=== PATIENT | female | born 1960 | race Caucasian/White ===

== ENCOUNTER → 2016-10-31 | Outpatient (CLI) | payer MEDICARE, MEDICAID ==
[~2016-10-31] MED LIST: /MOXI40TA PO; BACL10TA2 PO; CALC600T7 PO; CLAR10CA3 PO; COLA50CA3 PO; DULC10SU9 PR; MIRA3350 PO; RANI1TAB6 PO; VALI10TA PO; XARE15TA PO; fleets PR
[2016-10-31 10:01] LABS: ALBUMIN 3.3 GM/DL (3.2-5.2); ALBUMIN/GLOBULIN RATIO 0.87 (1.00-1.93); ALKALINE PHOSPHATASE 104 U/L (45-117); ALT/SGPT 32 U/L (12-78); ANION GAP 6 MEQ/L (8-16); AST/SGOT 21 U/L (15-37); BILIRUBIN,TOTAL 0.3 MG/DL (0.2-1.0); BLOOD UREA NITROGEN 13 MG/DL (7-18); CALCIUM LEVEL 8.6 MG/DL (8.5-10.1); CARBON DIOXIDE LEVEL 30 MEQ/L (21-32); CHLORIDE LEVEL 107 MEQ/L (98-107); CREATININE FOR GFR 0.88 MG/DL (0.55-1.02); FREE T4 0.92 NG/DL (0.76-1.46); GLOMERULAR FILTRATION RATE > 60.0 (>51); GLUCOSE, FASTING 93 MG/DL (70-105); POTASSIUM SERUM 4.4 MEQ/L (3.5-5.1); SODIUM LEVEL 143 MEQ/L (136-145); TOTAL PROTEIN 7.1 GM/DL (6.4-8.2)
== END ==
LOC: M WUC 08:27
PROVIDERS: ATTEND Family Medicine
DX: E55.9 Vitamin D deficiency, unspecified (principal); R73.01 Impaired fasting glucose

== ENCOUNTER → 2016-11-14 | Outpatient (REF) | payer MEDICARE, MEDICAID | LOC: M SFHCPLAZ 16:37 | PROVIDERS: ATTEND Family Medicine | DX: R32 Unspecified urinary incontinence (principal) ==

== ENCOUNTER → 2017-02-03 | Outpatient (CLI) | payer MEDICARE, MEDICAID ==
--- NOTE | 2017-02-07 12:53 | REP ---
LIMITED MAMMOGRAM: Limited bilateral mammography performed in the CC projections. Patient would not allow appropriate positioning for MLO views. The CC views show predominantly fatty replacement with no definite mass or clustered microcalcifications. Suggest the patient return for MLO views for a complete study. IMPRESSION: ACR 0 incomplete. Only bilateral CC views could be completed. These show no definite mass or clustered microcalcifications. Suggest the patient return for bilateral MLO views for complete evaluation. BI-RADS/ACR category 0 mammogram, incomplete. Additional imaging and/or prior images are needed before a final assessment can be assigned. This mammogram was interpreted with the aid of an FDA-approved computer-aided detection system. The patient states that she/he has not had a clinical breast exam in over a year. The patient letter being requested is M0.
== END ==
LOC: M WHC 10:33
PROVIDERS: ATTEND Family Medicine
DX: R92.2 Inconclusive mammogram (principal)
CPT/HCPCS: G0202; G0463

== ENCOUNTER → 2017-03-07 | Outpatient (REF) | payer MEDICARE, MEDICAID | LOC: M LAB REF 17:02 | PROVIDERS: ATTEND Family Medicine | DX: I82.409 Acute embolism and thrombosis of unspecified deep veins of unspecified lower extremity (principal); R73.01 Impaired fasting glucose ==

== ENCOUNTER → 2017-03-07 | Outpatient (CLI) | payer MEDICARE, MEDICAID ==
[2017-03-07 13:34] LABS: BASO % 0.4 % (0.0-1.0); EOS # 0.2 K/mm3 (0.0-0.50); EOS % 3.1 % (0.0-3.0); LARGE UNSTAINED CELL # 0.2 K/mm3 (0.0-0.4); LARGE UNSTAINED CELL % 2.1 % (0.0-4.0); LYMPH # 2.8 K/mm3 (1.5-4.5); LYMPH % 32.4 % (24.0-44.0); MEAN CORPUSCULAR HEMOGLOBIN 28.8 pg (27.0-33.0); MEAN CORPUSCULAR HGB CONC 31.2 g/dl (32.0-36.5); MEAN CORPUSCULAR VOLUME 92.2 fl (80.0-96.0); MONO # 0.5 K/mm3 (0.0-0.8); MONO % 5.8 % (0.0-5.0); NEUTROPHILS # 4.5 K/mm3 (1.8-7.7); NEUTROPHILS % 56.1 % (36.0-66.0); PLATELET COUNT, AUTOMATED 238 k/mm3 (150-450); RED CELL DISTRIBUTION WIDTH 13.8 % (11.5-14.5)
[2017-03-07 13:44] LABS: PERCENT SATURATION 25.2 % (13.2-37.4)
== END ==
LOC: M WUC 08:19
PROVIDERS: ATTEND Family Medicine
DX: I82.409 Acute embolism and thrombosis of unspecified deep veins of unspecified lower extremity (principal); R73.01 Impaired fasting glucose; I26.99 Other pulmonary embolism without acute cor pulmonale; K76.0 Fatty (change of) liver, not elsewhere classified; R94.5 Abnormal results of liver function studies

== ENCOUNTER → 2017-03-08 | Outpatient (CLI) | payer MEDICARE, MEDICAID ==
--- NOTE | 2017-03-08 14:47 | REP ---
PELVIC SONOGRAPHY: HISTORY: Postmenopausal bleeding. Findings: Transabdominal scanning is performed. Uterine dimensions are normal and 6.9 x 2.9 x 4.1 cm. Endometrial echo 0.4 cm thick. There is a 2.0 cm fibroid in the right anterior uterus. A subcentimeter fibroid is seen in the right posterior uterus. No free fluid is seen. Bladder souza are smooth. The right ovary contains a 1.6 cm follicle cyst. Right ovary dimensions are 2.6 x 2.0 x 1.7 cm. There is a 1.5 cm simple cyst in the left ovary. Left ovarian dimensions measure 2.6 x 1.9 x 2.0 cm. IMPRESSION: Two small uterine fibroids. No other significant abnormality.
== END ==
LOC: M WHC 11:03
PROVIDERS: ATTEND Family Medicine
DX: N95.0 Postmenopausal bleeding (principal); N83.202 Unspecified ovarian cyst, left side; D25.9 Leiomyoma of uterus, unspecified

== ENCOUNTER → 2017-06-06 | Outpatient (CLI) | payer MEDICARE, MEDICAID ==
[2017-06-06 09:18] LABS: BASO % 0.2 % (0.0-1.0); EOS # 0.2 10^3/uL (0.0-0.50); EOS % 2.6 % (0.0-3.0); IMMATURE GRANULOCYTE % 0.2 % (0-0); LYMPH # 2.3 10^3/uL (1.5-4.5); LYMPH % 27.6 % (24.0-44.0); MEAN CORPUSCULAR HGB CONC 31.5 g/dl (32.0-36.5); MEAN CORPUSCULAR VOLUME 89.1 fl (80.0-96.0); MONO # 0.7 10^3/uL (0.0-0.8); NEUTROPHILS % 61.4 % (36.0-66.0); PLATELET COUNT, AUTOMATED 253 10^3/uL (150-450); RED CELL DISTRIBUTION WIDTH 14.6 % (11.5-14.5); WHITE BLOOD COUNT 8.2 10^3/uL (4.0-10.0)
[2017-06-06 09:45] LABS: ALBUMIN 3.4 GM/DL (3.2-5.2); ALBUMIN/GLOBULIN RATIO 0.85 (1.00-1.93); ALKALINE PHOSPHATASE 90 U/L (45-117); ALT/SGPT 21 U/L (12-78); ANION GAP 5 MEQ/L (8-16); AST/SGOT 15 U/L (15-37); BILIRUBIN,TOTAL 0.3 MG/DL (0.2-1.0); BLOOD UREA NITROGEN 9 MG/DL (7-18); CALCIUM LEVEL 9.7 MG/DL (8.5-10.1); CARBON DIOXIDE LEVEL 32 MEQ/L (21-32); CHLORIDE LEVEL 104 MEQ/L (98-107); CREATININE FOR GFR 0.84 MG/DL (0.55-1.02); FERRITIN 36 NG/ML (8-252); GLOMERULAR FILTRATION RATE > 60.0 (>51); GLUCOSE, FASTING 98 MG/DL (70-105); POTASSIUM SERUM 4.7 MEQ/L (3.5-5.1); SODIUM LEVEL 141 MEQ/L (136-145); TOTAL PROTEIN 7.4 GM/DL (6.4-8.2)
== END ==
LOC: M WUC 08:22
PROVIDERS: ATTEND Family Medicine
DX: I82.409 Acute embolism and thrombosis of unspecified deep veins of unspecified lower extremity (principal); E55.9 Vitamin D deficiency, unspecified; R73.01 Impaired fasting glucose

== ENCOUNTER → 2017-09-12 | Outpatient (CLI) | payer MEDICARE, MEDICAID ==
[2017-09-12 16:34] LABS: C REACTIVE PROTEIN QUANTITATIV 0.57 MG/DL (0.00-0.30); CHOLESTEROL LEVEL 202 MG/DL (<200); CPK CREATINE PHOSPHOKINASE 68 U/L (26-192); HDL CHOLESTEROL 68 MG/DL (>40); LDL CHOLESTEROL 78.8 MG/DL (<100); NON-HDL-C 134 MG/DL; TRIGLYCERIDES LEVEL 276 MG/DL (<150)
[2017-09-12 17:08] LABS: ESTIMATED AVERAGE GLUCOSE 126 MG/DL (60-110)
[2017-09-12 20:11] LABS: APPEARANCE, URINE CLEAR (CLEAR); BACTERIA, URINE AUTO NEGATIVE (NEGATIVE); BILIRUBIN, URINE AUTO NEGATIVE (NEGATIVE); BLOOD, URINE BLOOD NEGATIVE (NEGATIVE); COLOR, URINE YELLOW (YELLOW); GLUCOSE, URINE (UA) AUTO NEGATIVE (NEGATIVE); KETONE, URINE AUTO NEGATIVE (NEGATIVE); LEUKOCYTE ESTERASE, URINE AUTO 1+ (NEGATIVE); NITRITE, URINE AUTO NEGATIVE (NEGATIVE); PROTEIN, URINE AUTO NEGATIVE (NEGATIVE); RBC, URINE AUTO 2 /HPF (0-3); SPECIFIC GRAVITY URINE AUTO 1.019 (1.002-1.035); SQUAMOUS EPITHELIAL CELL UR AU 0 /HPF (0-6); UROBILINOGEN, URINE AUTO 0.2 mg/dL (0.0-2.0); WBC, URINE AUTO 5 /HPF (0-3)
[2017-09-12 21:13] LABS: CREATININE, URINE 77.4 MG/DL; MALB URINE SIEMENS 5.6 MG/L; MAU/CREAT RATIO 7.2 MCG/MG (0.0-30.0)
== END ==
LOC: M WUC 09:04
DX: R73.01 Impaired fasting glucose (principal); E78.00 Pure hypercholesterolemia, unspecified
CPT/HCPCS: 82550

== ENCOUNTER → 2017-11-05 | Outpatient (CLI) | payer MEDICARE, MEDICAID | LOC: M WUC 11:34 | DX: M19.012 Primary osteoarthritis, left shoulder (principal); M25.512 Pain in left shoulder | CPT/HCPCS: 73000 ==

== ENCOUNTER → 2018-01-15 | Outpatient (CLI) | payer MEDICARE, MEDICAID ==
[2018-01-15 09:36] LABS: BASO % 0.2 % (0.0-1.0); EOS # 0.3 10^3/uL (0.0-0.50); EOS % 2.4 % (0.0-3.0); HEMATOCRIT 41.3 % (36.0-47.0); IMMATURE GRANULOCYTE % 0.3 % (0-3.0); LYMPH # 2.3 10^3/uL (1.5-4.5); LYMPH % 21.7 % (24.0-44.0); MEAN CORPUSCULAR HEMOGLOBIN 28.1 pg (27.0-33.0); MEAN CORPUSCULAR HGB CONC 31.5 g/dl (32.0-36.5); MEAN CORPUSCULAR VOLUME 89.2 fl (80.0-96.0); MONO % 9.1 % (0.0-5.0); NEUTROPHILS % 66.3 % (36.0-66.0); PLATELET COUNT, AUTOMATED 232 10^3/uL (150-450); RED BLOOD COUNT 4.63 10^6/uL (4.00-5.40); RED CELL DISTRIBUTION WIDTH 15.5 % (11.5-14.5); WHITE BLOOD COUNT 10.5 10^3/uL (4.0-10.0)
[2018-01-15 10:03] LABS: ALBUMIN 3.2 GM/DL (3.2-5.2); ALBUMIN/GLOBULIN RATIO 0.89 (1.00-1.93); ALKALINE PHOSPHATASE 118 U/L (45-117); ALT/SGPT 37 U/L (12-78); ANION GAP 5 MEQ/L (8-16); AST/SGOT 25 U/L (7-37); BILIRUBIN,TOTAL 0.3 MG/DL (0.2-1.0); BLOOD UREA NITROGEN 10 MG/DL (7-18); CALCIUM LEVEL 8.5 MG/DL (8.5-10.1); CARBON DIOXIDE LEVEL 31 MEQ/L (21-32); CHLORIDE LEVEL 109 MEQ/L (98-107); CHOLESTEROL LEVEL 102 MG/DL (<200); CHOLESTEROL RISK RATIO 1.545 (<5); CPK CREATINE PHOSPHOKINASE 57 U/L (26-192); CREATININE FOR GFR 0.72 MG/DL (0.55-1.30); FERRITIN 38 NG/ML (8-252); GLOMERULAR FILTRATION RATE > 60.0 (>51); GLUCOSE, FASTING 88 MG/DL (70-100); HDL CHOLESTEROL 66 MG/DL (>40); LDL CHOLESTEROL 12.8 MG/DL (<100); NON-HDL-C 36 MG/DL; POTASSIUM SERUM 4.5 MEQ/L (3.5-5.1); SODIUM LEVEL 145 MEQ/L (136-145); TOTAL PROTEIN 6.8 GM/DL (6.4-8.2); TRIGLYCERIDES LEVEL 116 MG/DL (<150)
[2018-01-15 11:45] LABS: ESTIMATED AVERAGE GLUCOSE 114 MG/DL (60-110); HEMOGLOBIN A1c 5.6 %
[2018-01-16 14:11] LABS: INSULIN LEVEL 15.7 uIU/mL (2.6-24.9)
== END ==
LOC: M WUC 08:29
DX: N95.0 Postmenopausal bleeding (principal); R73.01 Impaired fasting glucose; Z79.899 Other long term (current) drug therapy
CPT/HCPCS: 82550

== ENCOUNTER → 2018-03-26 | Outpatient (CLI) | payer MEDICARE, MEDICAID | LOC: M WHC 13:13 | DX: Z12.31 Encounter for screening mammogram for malignant neoplasm of breast (principal) | CPT/HCPCS: 77067 ==

== ENCOUNTER → 2018-06-10 | Outpatient (CLI) | payer MEDICARE, MEDICAID ==
[2018-06-10 18:18] LABS: ALBUMIN 3.2 GM/DL (3.2-5.2); ALBUMIN/GLOBULIN RATIO 0.86 (1.00-1.93); ALKALINE PHOSPHATASE 118 U/L (45-117); ALT/SGPT 41 U/L (12-78); ANION GAP 5 MEQ/L (8-16); AST/SGOT 31 U/L (7-37); BILIRUBIN,TOTAL 0.3 MG/DL (0.2-1.0); BLOOD UREA NITROGEN 11 MG/DL (7-18); CALCIUM LEVEL 8.4 MG/DL (8.5-10.1); CARBON DIOXIDE LEVEL 31 MEQ/L (21-32); CHLORIDE LEVEL 106 MEQ/L (98-107); CREATININE FOR GFR 0.78 MG/DL (0.55-1.30); GLOMERULAR FILTRATION RATE > 60.0 (>51); GLUCOSE, FASTING 87 MG/DL (70-100); POTASSIUM SERUM 4.6 MEQ/L (3.5-5.1); SODIUM LEVEL 142 MEQ/L (136-145); TOTAL PROTEIN 6.9 GM/DL (6.4-8.2)
[2018-06-10 18:38] LABS: ESTIMATED AVERAGE GLUCOSE 123 MG/DL (60-110); HEMOGLOBIN A1c 5.9 %
[2018-06-10 18:45] LABS: BASO % 0.2 % (0.0-1.0); EOS # 0.2 10^3/uL (0.0-0.50); EOS % 2.1 % (0.0-3.0); HEMATOCRIT 45.2 % (36.0-47.0); HEMOGLOBIN 13.5 g/dl (12.0-15.5); IMMATURE GRANULOCYTE % 0.3 % (0-3.0); LYMPH % 34.2 % (24.0-44.0); MEAN CORPUSCULAR HEMOGLOBIN 27.1 pg (27.0-33.0); MEAN CORPUSCULAR HGB CONC 29.9 g/dl (32.0-36.5); MEAN CORPUSCULAR VOLUME 90.6 fl (80.0-96.0); MONO # 0.6 10^3/uL (0.0-0.8); MONO % 7.2 % (0.0-5.0); NEUTROPHILS # 4.9 10^3/uL (1.8-7.7); PLATELET COUNT, AUTOMATED 283 10^3/uL (150-450); RED BLOOD COUNT 4.99 10^6/uL (4.00-5.40); RED CELL DISTRIBUTION WIDTH 15.4 % (11.5-14.5); RETIC HEMOGLOBIN EQUIVALENT 33.2 pg (24-36); RETICULOCYTE # 70.4 10^9/L (17-77); RETICULOCYTE % 1.4 % (0.5-1.5); WHITE BLOOD COUNT 8.7 10^3/uL (4.0-10.0)
[2018-06-11 10:07] LABS: TOTAL 25(OH) VITAMIN D 80.9 NG/ML (30.0-100.0)
[2018-06-11 10:08] LABS: PTH INTACT 50.9 PG/ML (18.5-88.0)
== END ==
LOC: M WUC 08:52
DX: E55.9 Vitamin D deficiency, unspecified (principal); I82.409 Acute embolism and thrombosis of unspecified deep veins of unspecified lower extremity; R73.01 Impaired fasting glucose; Z79.899 Other long term (current) drug therapy
CPT/HCPCS: 83525

== ENCOUNTER → 2018-06-25 | Outpatient (CLI) | payer MEDICARE, MEDICAID | LOC: M WHC 09:42 | DX: E55.9 Vitamin D deficiency, unspecified (principal); M85.851 Other specified disorders of bone density and structure, right thigh | CPT/HCPCS: 77080 ==

== ENCOUNTER → 2018-11-05 | Outpatient (REF) | payer MEDICARE, MEDICAID ==
[2018-11-05 15:58] LABS: BASO % 0.3 % (0.0-1.0); EOS # 0.3 10^3/uL (0.0-0.50); EOS % 2.7 % (0.0-3.0); HEMATOCRIT 41.6 % (36.0-47.0); HEMOGLOBIN 12.9 g/dl (12.0-15.5); LYMPH # 2.9 10^3/uL (1.5-4.5); LYMPH % 28.7 % (24.0-44.0); MEAN CORPUSCULAR HEMOGLOBIN 27.3 pg (27.0-33.0); MEAN CORPUSCULAR VOLUME 87.9 fl (80.0-96.0); MONO # 1.3 10^3/uL (0.0-0.8); MONO % 12.8 % (0.0-5.0); NEUTROPHILS # 5.6 10^3/uL (1.8-7.7); NEUTROPHILS % 55.2 % (36.0-66.0); PLATELET COUNT, AUTOMATED 281 10^3/uL (150-450); RED BLOOD COUNT 4.73 10^6/uL (4.00-5.40); WHITE BLOOD COUNT 10.1 10^3/uL (4.0-10.0)
[2018-11-05 16:10] LABS: ALBUMIN 3.1 GM/DL (3.2-5.2); ALT/SGPT 35 U/L (12-78); BILIRUBIN,TOTAL 0.2 MG/DL (0.2-1.0); BLOOD UREA NITROGEN 13 MG/DL (7-18); C REACTIVE PROTEIN QUANTITATIV 0.86 MG/DL (0.00-0.30); CALCIUM LEVEL 8.8 MG/DL (8.5-10.1); CARBON DIOXIDE LEVEL 31 MEQ/L (21-32); CHLORIDE LEVEL 108 MEQ/L (98-107); CHOLESTEROL LEVEL 119 MG/DL (<200); CHOLESTEROL RISK RATIO 2.016 (<5); CPK CREATINE PHOSPHOKINASE 53 U/L (26-192); FREE T4 0.86 NG/DL (0.76-1.46); GAMMA GLUTAMYLTRANSPEPTIDASE 11 U/L (5-55); GLOMERULAR FILTRATION RATE > 60.0 (>51); GLUCOSE, FASTING 96 MG/DL (70-100); HDL CHOLESTEROL 59 MG/DL (>40); LDL CHOLESTEROL -4 MG/DL (<100); NON-HDL-C 60 MG/DL; POTASSIUM SERUM 4.2 MEQ/L (3.5-5.1); SODIUM LEVEL 145 MEQ/L (136-145); THYROID STIMULATING HORMONE 0.608 uIU/ML (0.358-3.740); TOTAL PROTEIN 6.7 GM/DL (6.4-8.2); TRIGLYCERIDES LEVEL 318 MG/DL (<150)
== END ==
LOC: M SFHCPLAZ 14:04
PROVIDERS: ATTEND Family Medicine
DX: R73.01 Impaired fasting glucose (principal); M85.80 Other specified disorders of bone density and structure, unspecified site; D72.829 Elevated white blood cell count, unspecified; E78.2 Mixed hyperlipidemia; F32.9 Major depressive disorder, single episode, unspecified; N95.0 Postmenopausal bleeding; G80.1 Spastic diplegic cerebral palsy; I82.409 Acute embolism and thrombosis of unspecified deep veins of unspecified lower extremity; R22.2 Localized swelling, mass and lump, trunk; K59.00 Constipation, unspecified; E55.9 Vitamin D deficiency, unspecified; Z12.11 Encounter for screening for malignant neoplasm of colon; Z86.010 Personal history of colon polyps
CPT/HCPCS: 36415; 80053; 80061; 82550; 82977; 83525; 84439; 84443; 85025; 85046; 86140; G0463

== ENCOUNTER → 2019-01-01 | Outpatient (REF) | payer MEDICARE, MEDICAID ==
[~2019-01-01] MED LIST changes: -/MOXI40TA PO; +AVEL1TAB2 PO
[2019-01-01 21:25] LABS: APPEARANCE, URINE CLEAR (CLEAR); BACTERIA, URINE AUTO NEGATIVE (NEGATIVE); BILIRUBIN, URINE AUTO NEGATIVE (NEGATIVE); BLOOD, URINE BLOOD NEGATIVE (NEGATIVE); COLOR, URINE YELLOW (YELLOW); GLUCOSE, URINE (UA) AUTO NEGATIVE (NEGATIVE); KETONE, URINE AUTO NEGATIVE (NEGATIVE); LEUKOCYTE ESTERASE, URINE AUTO NEGATIVE (NEGATIVE); MUCUS, URINE SMALL (NEGATIVE); NITRITE, URINE AUTO NEGATIVE (NEGATIVE); PROTEIN, URINE AUTO NEGATIVE (NEGATIVE); RBC, URINE AUTO 0 /HPF (0-3); SPECIFIC GRAVITY URINE AUTO 1.013 (1.002-1.035); SQUAMOUS EPITHELIAL CELL UR AU 0 /HPF (0-6); UROBILINOGEN, URINE AUTO 0.2 mg/dL (0.0-2.0); WBC, URINE AUTO 0 /HPF (0-3)
== END ==
LOC: M SFHCPLAZ 19:25
PROVIDERS: ATTEND Family Medicine
DX: N39.0 Urinary tract infection, site not specified (principal)

== ENCOUNTER 2019-02-07 07:18 | Day surgery (SDC) | payer MEDICARE, MEDICAID ==
[~2019-02-07] VITALS: Ht 152.4 cm; Wt 54.4 kg
[~2019-02-07 07:18] MED LIST changes: +CALCCHW4 PO; +CLAR10TA7 PO; +COLA100C5 PO; +DRIS50003 PO; +LIPI20TA PO; +METF500T13 PO; +NS 1,000 ML IV ONE; +PAXI25TA13 PO; +XARE20TA PO; +ZANTTAB PO
[2019-02-07] MEDS ORDERED: LIDOCAINE 2% INJ 100 MG/5 ML SDV (FOR ANES.) As Ordered ONE (07:20)
[2019-02-07] MEDS ORDERED: PROPOFOL 200 MG/20 ML VIAL As Ordered ONE ×2 (07:20→09:08)
--- NOTE | 2019-02-07 09:21 | ROOR ---
Patient Name: Terrie Connell Procedure Date: 02/07/2019 8:47 AM Date of : 1960 Age: 58 Room: [facility] Gender: Female Note Status: Finalized Procedure: Colonoscopy Indications: High risk colon cancer surveillance: Personal history of colonic polyps Providers: Levon PAULINO MD Referring MD: Yovani Solorzano MD Requesting Provider: Medicines: Monitored Anesthesia Care Complications: No immediate complications. Procedure: Pre-Anesthesia Assessment: - The heart rate, respiratory rate, oxygen saturations, blood pressure, adequacy of pulmonary ventilation, and response to care were monitored throughout the procedure. The Colonoscope was introduced through the anus and advanced to the cecum, identified by appendiceal orifice and ileocecal valve. The colonoscopy was performed without difficulty. The patient tolerated the procedure well. The quality of the bowel preparation was adequate. Findings: The perianal and digital rectal examinations were normal. Three sessile polyps were found in the splenic flexure and hepatic flexure. The polyps were 3 to 5 mm in size. These polyps were removed with a cold snare. Resection and retrieval were complete. Internal hemorrhoids were found during retroflexion. The hemorrhoids were medium-sized. Retroflexion in the right colon was performed. The exam was otherwise without abnormality on direct and retroflexion views. Impression: - Three 3 to 5 mm polyps at the splenic flexure and at the hepatic flexure, removed with a cold snare. Resected and retrieved. - Internal hemorrhoids. - The examination was otherwise normal on direct and retroflexion views. Recommendation: - Telephone endoscopist for pathology results in 2 weeks. - If the pathology report reveals adenomatous tissue, then repeat the colonoscopy for surveillance in 3 years. - If the pathology report indicates hyperplastic polyp, then repeat colonoscopy for surveillance in 5 years. Levon Paulino MD Levon PAULINO MD 02/07/2019 9:21:03 AM Electronically signed by Levon PAULINO MD Number of Addenda: 0 Note Initiated On: 02/07/2019 8:47 AM Estimated Blood Loss: Estimated blood loss: none.
[2019-02-07 09:48] VITALS: BP 117/84
== END 2019-02-07 09:29 | disposition home or self-care (01) ==
LOC: M OPP 07:18
PROVIDERS: ATTEND Internal Medicine Gastroenterology
DX: Z12.11 Encounter for screening for malignant neoplasm of colon (principal); Z86.010 Personal history of colon polyps; D12.3 Benign neoplasm of transverse colon; K64.8 Other hemorrhoids; Z79.84 Long term (current) use of oral hypoglycemic drugs; Z79.899 Other long term (current) drug therapy; Z88.5 Allergy status to narcotic agent; Z88.8 Allergy status to other drugs, medicaments and biological substances

== ENCOUNTER → 2019-03-28 | Outpatient (CLI) | payer MEDICARE, MEDICAID ==
[~2019-03-28] MED LIST changes: -NS 1,000 ML IV ONE; +ZANT150T40 PO; -ZANTTAB PO
--- NOTE | 2019-03-28 10:14 | REPMRS ---
Patient History The patient states she had a clinical breast exam in 06/14. Digital Woman Screen Mammo: March 28, 2019 - Exam #: [id number] Bilateral CC and MLO view(s) were taken. Technologist: Karley Gu, Technologist Prior study comparison: March 26, 2018, bilateral digital woman screen mammo performed at [facility]. February 03, 2017, digital woman screen mammo performed at [facility]. December 02, 2015, digital woman screen mammo performed at [facility]. FINDINGS: There are scattered fibroglandular densities. There has been no change in the appearance of the mammogram from the prior studies. There is a mild amount of scattered fibroglandular density which is fairly symmetric. There is no interval development of dominant mass, architectural distortion, or grouped microcalcification suggestive of malignancy. 3-D tomosynthesis shows no additional findings. Assessment: BI-RADS/ACR category 1 mammogram. Negative Mammogram. Recommendation Routine screening mammogram of both breasts in 1 year (for women over age 40). This patient's Lifetime Breast Cancer Risk is estimated at 10.3 %. This mammogram was interpreted with the aid of an FDA-approved computer-aided dectection system. Electronically Signed By: Aurelio Sánchez MD 03/28/19 [id number]
== END ==
LOC: M WHC 09:31
PROVIDERS: ATTEND Family Medicine
DX: Z12.39 Encounter for other screening for malignant neoplasm of breast (principal)

== ENCOUNTER → 2019-03-30 | Outpatient (CLI) | payer MEDICARE, MEDICAID ==
[2019-03-30 17:36] LABS: ALBUMIN 3.2 GM/DL (3.2-5.2); ALT/SGPT 64 U/L (12-78); BILIRUBIN,TOTAL 0.4 MG/DL (0.2-1.0); BLOOD UREA NITROGEN 11 MG/DL (7-18); CALCIUM LEVEL 8.6 MG/DL (8.5-10.1); CARBON DIOXIDE LEVEL 32 MEQ/L (21-32); CHLORIDE LEVEL 107 MEQ/L (98-107); CHOLESTEROL LEVEL 104 MG/DL (<200); CHOLESTEROL RISK RATIO 1.529 (<5); CREATININE FOR GFR 0.87 MG/DL (0.55-1.30); GLOMERULAR FILTRATION RATE > 60.0 (>51); GLUCOSE, FASTING 95 MG/DL (70-100); HDL CHOLESTEROL 68 MG/DL (>40); LDL CHOLESTEROL 16 MG/DL (<100); NON-HDL-C 36 MG/DL; POTASSIUM SERUM 4.6 MEQ/L (3.5-5.1); SODIUM LEVEL 142 MEQ/L (136-145); TOTAL PROTEIN 6.7 GM/DL (6.4-8.2); TRIGLYCERIDES LEVEL 101 MG/DL (<150)
== END ==
LOC: M WUC 09:04
PROVIDERS: ATTEND Family Medicine
DX: E78.2 Mixed hyperlipidemia (principal)

== ENCOUNTER → 2019-07-04 | Outpatient (REF) | payer MEDICARE, MEDICAID ==
[2019-07-09 14:27] LABS: HPV HYBRID CAPTURE II Negative (Negative)
== END ==
LOC: M SFHCWAGY 10:47
PROVIDERS: ATTEND Nurse Practitioner Women's Health
DX: Z12.4 Encounter for screening for malignant neoplasm of cervix (principal); R87.620 Atypical squamous cells of undetermined significance on cytologic smear of vagina (ASC-US); N95.2 Postmenopausal atrophic vaginitis; L85.9 Epidermal thickening, unspecified
CPT/HCPCS: 87624; G0123; G0463

== ENCOUNTER 2019-10-05 15:52 | Inpatient (IN) | payer MEDICARE, MEDICAID ==
[~2019-10-05] VITALS: Ht 147.3 cm; Wt 52.5 kg
[2019-10-05] MEDS ORDERED: NS 1,000 ML IV ONE (17:15)
[2019-10-05] MEDS ORDERED: ONDANSETRON 4MG/2ML VIAL (J2405) IV ONE (17:15)
[2019-10-05 18:00] LABS: BASO % 0.3 % (0.0-1.0); HEMATOCRIT 45.2 % (36.0-47.0); HEMOGLOBIN 14.3 g/dl (12.0-15.5); LYMPH % 13.4 % (24.0-44.0); MEAN CORPUSCULAR HEMOGLOBIN 27.6 pg (27.0-33.0); MEAN CORPUSCULAR HGB CONC 31.6 g/dl (32.0-36.5); MEAN CORPUSCULAR VOLUME 87.1 fl (80.0-96.0); MONO # 0.3 10^3/uL (0.0-0.8); MONO % 1.9 % (0.0-5.0); NEUTROPHILS # 12.5 10^3/uL (1.5-8.5); PLATELET COUNT, AUTOMATED 307 10^3/uL (150-450); RED BLOOD COUNT 5.19 10^6/uL (4.00-5.40); WHITE BLOOD COUNT 14.9 10^3/uL (4.0-10.0)
[2019-10-05 18:27] LABS: ALBUMIN 3.7 GM/DL (3.2-5.2); ALT/SGPT 37 U/L (12-78); BILIRUBIN,DIRECT 0.1 MG/DL (0.0-0.2); BILIRUBIN,TOTAL 0.3 MG/DL (0.2-1.0); CPK CREATINE PHOSPHOKINASE 76 U/L (26-192); LIPASE 139 U/L (73-393); MB/CK RELATIVE INDEX 1.32 (< OR =4); TOTAL PROTEIN 7.7 GM/DL (6.4-8.2); TROPONIN I < 0.02 NG/ML (< 0.10)
[2019-10-05] MEDS ORDERED: NS 780 ML in IV 1 EA IV ONE (18:30)
--- NOTE | 2019-10-05 18:50 | REP ---
Clinical: Cough. Comparison: None. Findings: Large density in the left breast obscures the left lower lung zone. The bilateral visualized lung clement are otherwise well aerated and clear. The cardiac silhouette and mediastinum appear normal. The skeletal structures are intact. Impression: Visualized lung clement are clear. Left lower lung zone is obscured by a large density presumed to be within the left breast. Electronically Signed by Branden Horton MD 10/05/2019 06:41 P
[2019-10-05 18:54] LABS: INFLUENZA A AMPLIFICATION NEGATIVE (NEGATIVE); INFLUENZA B AMPLIFICATION NEGATIVE (NEGATIVE)
[2019-10-05] MEDS ORDERED: ISOVUE-370 76% 100ML VIAL (Q9967) As Ordered ONE (19:12)
--- NOTE | 2019-10-05 19:26 | ECGEPIP ---
[facility] - ED Test Date: 2019-10-05 Pat Name: PIERO HANCOCK Department: Room: - Gender: Female [employer] Le[employer]: : 1960 Requested By: JENNIFER HERNANDEZ PA-C Order Number: [id number] Reading MD: Oscar Griffiths Measurements Intervals [place] Rate: 81 P: 70 AL: 173 QRS: 76 QRSD: 90 T: 75 QT: 409 QTc: 475 Interpretive Statements SINUS RHYTHM NONSPECIFIC ST T WAVE CHANGES NO PRIOR ECG FOR COMPARISON Electronically Signed on 10-05-2019 19:26:16 EST by Oscar Griffiths
--- NOTE | 2019-10-05 19:59 | REPVR ---
PROCEDURE INFORMATION: Exam: CT Abdomen And Pelvis With Contrast Exam date and time: 10/05/2019 7:22 PM Age: 59 years old Clinical indication: Vomiting; Additional info: Vomiting/sweats TECHNIQUE: Imaging protocol: Computed tomography of the abdomen and pelvis with intravenous contrast. Radiation optimization: All CT scans at this facility use at least one of these dose optimization techniques: automated exposure control; mA and/or kV adjustment per patient size (includes targeted exams where dose is matched to clinical indication); or iterative reconstruction. Contrast material: ISOVUE 370; Contrast volume: 100 ml; Contrast route: IV; COMPARISON: CT ABD PELVIS W/O CONTRAST 10/04/2013 5:49 PM FINDINGS: Liver: There is a diffuse decrease in hepatic parenchymal density, consistent with steatosis. Gallbladder and bile ducts: Normal. No calcified stones. No ductal dilation. Pancreas: Normal. No ductal dilation. Spleen: Normal. No splenomegaly. Adrenals: Normal. No mass. Kidneys and ureters: Normal. No hydronephrosis. Stomach and bowel: Impacted feces in the rectosigmoid. Mild thickening of the wall of the rectum may indicate stercoral colitis. There is a diffusely boggy appearance of the ascending, transverse and proximal left colon with mural stratification, wall thickening, and an ahasutral countour. There are mild pericolonic inflammatory changes. Findings consistent with acute colitis. No abscess demonstrated. Appendix: No evidence of appendicitis. Intraperitoneal space: Unremarkable. No free air. No significant fluid collection. Vasculature: The aorta demonstrates mild atherosclerotic calcification. Lymph nodes: Unremarkable. No enlarged lymph nodes. Bladder: Unremarkable as visualized. Reproductive: Unremarkable as visualized. Bones/joints: Unremarkable. No acute fracture. Soft tissues: Unremarkable. IMPRESSION: 1. Impacted feces in the rectosigmoid. Mild thickening of the wall of the rectum may indicate stercoral colitis. 2. There is a diffuse decrease in hepatic parenchymal density, consistent with steatosis. 3. There is a diffusely boggy appearance of the ascending, transverse and proximal left colon with mural stratification, wall thickening, and an ahasutral countour. There are mild pericolonic inflammatory changes. Findings consistent with acute colitis. No abscess demonstrated. Electronically signed by: Ilir Santos On 10/05/2019 19:59:03 PM
[2019-10-05] MEDS ORDERED: PIPERACILLIN/TAZOBACTAM SOD 4.5 GM in D5W MINI-BAG PLUS 50 ML IV ONE (20:30)
--- NOTE | 2019-10-05 20:38 | HPEPDOC ---
[facility] Medical History & Physical Date of Admission Oct 05, 2019 Date of Service: Oct 05, 2019 Primary Care Physician: Yovani Solorzano M.D. Attending Physician: Lucius Coyle MD History and Physical TIME OF SERVICE: 8:47 PM CHIEF COMPLAINT: Sent from [facility] HISTORY OF PRESENT ILLNESS: The patient is not verbal and unable to contribute to the history. This is a 59-year-old female who was sent from her [facility] for evaluation of high blood pressure. Apparently earlier on in the day. She was vomiting and sweating. REVIEW OF SYSTEMS: Unobtainable PAST MEDICAL/ SURGICAL HISTORY: Cerebral palsy Hepatic steatosis Per DM Right lower extremity DVT on Xarelto Chronic constipation History of subclinical hypothyroidism post thyroiditis Menorrhagia Seizure disorder Eczema SOCIAL HISTORY: She lives in a [facility] FAMILY HISTORY: Unobtainable ALLERGIES: Please see below. HOME MEDICATIONS: Please see below. PHYSICAL EXAMINATION: VITAL SIGNS: Please see below. GEN: well-nourished / smiling INTEGUMENT: not flushed/ not jaundice HEENT: NCAT / lips acyanotic /mucus membranes moist and pink CVS: RRR/NMRG LUNGS: no coughing / lungs are clear to auscultation ABDOMEN: soft not grimacing with palpation MSK/EXTREMITIES: contractures of both upper extremities PSYCH: alert LABORATORY DATA: See below. IMAGING: Chest x-ray "Impression: Visualized lung clement are clear. Left lower lung zone is obscured by a large density presumed to be within the left breast." CT abdomen and pelvis " IMPRESSION: 1. Impacted feces in the rectosigmoid. Mild thickening of the wall of the rectum may indicate stercoral colitis. 2. There is a diffuse decrease in hepatic parenchymal density, consistent with steatosis. 3. There is a diffusely boggy appearance of the ascending, transverse and proximal left colon with mural stratification, wall thickening, and an ahasutral countour. There are mild pericolonic inflammatory changes. Findings consistent with acute colitis. No abscess demonstrated. " MICROBIOLOGY: Please see below. ASSESSMENT: Ms. Connell is a 59-year-old female with a history of cerebral palsy, prediabetes, right lower extremity DVT, chronic constipation, as an seizure disorder was admitted for management of acute colitis. PLAN: 1. Acute colitis SIRS criteria include a WBC count of 14.9. Lactic acid was elevated at 3.7. CT report was reviewed Plan: Admit to PCU for frequent monitoring/IV fluids/continue with Zosyn/Zofran for vomiting 2. Uncontrolled hypertension - Plan: Continue with diazepam 5 mg daily and add amlodipine 2.5 mg daily 3. Prediabetes? (A1c 6.0%) - Plan: diabetic diet / f/u accuchecks & A1C / hypoglycemia protocol / sliding scale insulin / hold metformin while acutely ill 4. RLE DVT - Plan: xarelto 5. Left Breast Mass ? - Plan: US of the left breast DVT PROPHYLAXIS: n/a DISPOSITION: back to [place] after more than 2 midnight 's stay Vital Signs Vital Signs Date Time Temp Pulse Resp B/P (MAP) Pulse Ox O2 Delivery O2 Flow Rate FiO2 10/05/19 16:16 10/05/19 15:53 97.5 85 20 96 Room Air Laboratory Data Labs 24H Laboratory Tests 2 10/05/19 17:46: Immature Granulocyte % (Auto) 0.4, Neutrophils (%) (Auto) 84.0H, Lymphocytes (%) (Auto) 13.4L, Monocytes (%) (Auto) 1.9, Eosinophils (%) (Auto) 0.0, Basophils (%) (Auto) 0.3, Neutrophils # (Auto) 12.5H, Lymphocytes # (Auto) 2.0, Monocytes # (Auto) 0.3, Eosinophils # (Auto) 0.0, Basophils # (Auto) 0.0, Nucleated Red Blood Cells % (auto) 0.0, Lactic Acid Level 3.7*H, Total Bilirubin 0.3, Direct Bilirubin 0.1, Aspartate Amino Transf (AST/SGOT) 32, Alanine Aminotransferase (ALT/SGPT) 37, Alkaline Phosphatase 136H, Total Creatine Kinase 76, Creatine Kinase MB 1.0, Creatine Kinase MB Relative Index 1.32, Troponin I < 0.02, Total Protein 7.7, Albumin 3.7, Albumin/Globulin Ratio 0.93L, Lipase 139, Influenza Type A (RT-PCR) NEGATIVE, Influenza Type B (RT-PCR) NEGATIVE 10/05/19 17:52: POC Glucose (Misc Panel) 181H, POC Sodium (Misc Panel) 142, POC Potassium (Misc Panel) 3.9, POC Chloride (Misc Panel) 103, POC Total CO2 (Misc Panel) 29.0H, POC Blood Urea Nitrogen (Misc Panel 10, POC Ionized Calcium (Misc Panel) 5.0, POC C reatinine (Misc Panel) 0.7, POC Hematocrit (Misc Panel) 47.0 CBC/BMP Laboratory Tests 10/05/19 17:46 Home Medications Scheduled Atorvastatin Calcium (Atorvastatin Calcium) 10 Mg Tablet, 10 MG PO QHS Baclofen (Baclofen) 10 Mg Tablet, 10 MG PO BID Calcium Carbonate/Vitamin D3 (Calcium 600 with Vit D Chew Tb) 1 Each Tab.chew, 1 TAB PO BID Cimetidine (Cimetidine) 200 Mg Tablet, 200 MG PO QHS Docusate Sodium (Colace) 100 Mg Capsule, 100 MG PO BID Ergocalciferol (Vitamin D2) (Vitamin D2) 50,000 Units Cap, 50,000 UNITS PO Q2WK Loratadine (Claritin) 10 Mg Tablet, 10 MG PO DAILY Metformin HCl (Metformin HCl ER) 500 Mg Tab.er.24h, 500 MG PO QHS Paroxetine HCl (Paxil Cr) 25 Mg Tab.er.24h, 25 MG PO DAILY Rivaroxaban (Xarelto) 20 Mg Tablet, 20 MG PO QPM Scheduled PRN Polyethylene Glycol 3350 (Miralax) 119 Gm Powder, 17 GM PO DAILY PRN for CONSTIPATION dilute in 8 ounces of water or juice Allergies Coded Allergies: chlorpromazine (Verified Allergy, Unknown, 01/24/19) meperidine (Verified Allergy, Unknown, 01/24/19) promethazine (Verified Allergy, Unknown, 01/24/19) Grapefruit (Unverified Adverse Reaction, Unknown, REACTION WITH MEDS, 10/23/09) A-FIB/CHADSVASC A-FIB History Current/History of A-Fib/PAF?: No Current PO Anticoag Therapy: No AREN MENA MD Oct 05, 2019 20:38
[2019-10-05] MEDS ORDERED: ACETAMINOPHEN TAB 650MG DOSE (2X325MG) PO PRN (20:45)
[2019-10-05] MEDS ORDERED: MOM 30ML SUSPENSION UDC PO PRN (20:45)
[2019-10-05] MEDS ORDERED: MAALOX 30 ML SUSP *UDC PO PRN (20:45)
[2019-10-05] MEDS ORDERED: ATOR1TAB19 PO (20:59)
[2019-10-05] MEDS ORDERED: METF-791 PO (20:59)
[2019-10-05] MEDS ORDERED: GNP200TA4 PO (20:59)
[2019-10-05] MEDS ORDERED: VITA50005 PO (21:01)
[2019-10-05] MEDS: NS 1,000 ML IV SCH (21:23)
[2019-10-05 22:18] VITALS: BP 158/74
[2019-10-05] MEDS: DOCUSATE SODIUM 100 MG CAP PO SCH (22:43)
[2019-10-05] MEDS: ONDANSETRON 4MG/2ML VIAL (J2405) IV PRN (22:56)
[2019-10-05 23:59] VITALS: BP 144/78
[2019-10-06] MEDS ORDERED: MIRALAX *UNIT DOSE* 17GM PACKET PO PRN (01:00)
[2019-10-06] MEDS ORDERED: GLUCOSE 4 GM CHEW TABLET PO PRN (01:00)
[2019-10-06] MEDS ORDERED: GLUCAGON FOR INJ 1 MG VIAL (J1610) SC PRN (01:00)
[2019-10-06] MEDS ORDERED: DEXTROSE 50% 50 ML SYRINGE IV PRN (01:00)
[2019-10-06] MEDS: BACLOFEN 10 MG TAB PO SCH ×3 (02:40→20:31)
[2019-10-06] MEDS: ATORVASTATIN 10 MG TAB PO SCH ×2 (02:40→20:30)
[2019-10-06] MEDS: CALCIUM/VITAMIN D 500 MG TAB PO SCH ×3 (02:40→20:31)
[2019-10-06] MEDS: RIVAROXABAN 20 MG TAB (XARELTO) PO SCH ×2 (03:04→20:31)
[2019-10-06] MEDS: HumaLOG INSULIN (NovoLOG) PER UNIT SC SCH ×5 (03:04→20:29)
[2019-10-06 04:00] VITALS: BP 137/85
[2019-10-06 05:35] LABS: HEMATOCRIT 38.7 % (36.0-47.0); MEAN CORPUSCULAR HEMOGLOBIN 26.7 pg (27.0-33.0); MEAN CORPUSCULAR HGB CONC 30.2 g/dl (32.0-36.5); MEAN CORPUSCULAR VOLUME 88.4 fl (80.0-96.0); PLATELET COUNT, AUTOMATED 269 10^3/uL (150-450); RED BLOOD COUNT 4.38 10^6/uL (4.00-5.40); WHITE BLOOD COUNT 11.8 10^3/uL (4.0-10.0)
[2019-10-06 05:39] LABS: HEMOGLOBIN 11.7 g/dl (12.0-15.5)
[2019-10-06 06:00] LABS: HEMOGLOBIN A1c 6.1 %
[2019-10-06] MEDS: PIPERACILLIN/TAZOBACTAM SOD 3.375 GM in D5W MINI-BAG PLUS 50 ML IV SCH ×3 (06:00→20:30)
[2019-10-06 06:02] LABS: BLOOD UREA NITROGEN 8 MG/DL (7-18); CALCIUM LEVEL 8.5 MG/DL (8.5-10.1); CARBON DIOXIDE LEVEL 29 MEQ/L (21-32); CHLORIDE LEVEL 111 MEQ/L (98-107); CREATININE FOR GFR 0.78 MG/DL (0.55-1.30); GLOMERULAR FILTRATION RATE > 60.0 (>51); GLUCOSE, FASTING 92 MG/DL (70-100); MAGNESIUM LEVEL 2.2 MG/DL (1.8-2.4); POTASSIUM SERUM 3.6 MEQ/L (3.5-5.1); SODIUM LEVEL 144 MEQ/L (136-145)
[2019-10-06] MEDS: NS 1,000 ML IV SCH ×2 (06:02→20:32)
[2019-10-06 07:36] VITALS: BP 134/75
[2019-10-06] MEDS: DOCUSATE SODIUM 100 MG CAP PO SCH ×2 (08:57→20:31)
[2019-10-06] MEDS: CALCIUM CARBONATE 500 MG CHEW U/D PO SCH ×3 (08:57→20:30)
[2019-10-06] MEDS: LORATADINE 10 MG TAB PO SCH (08:57)
[2019-10-06] MEDS: PARoxetine 25 MG CR TAB (PAXIL CR) PO SCH (08:58)
[2019-10-06] MEDS ORDERED: ENOXAPARIN 40 MG/0.4 ML SYRINGE (J1650) SC SCH (09:00)
[2019-10-06] MEDS ORDERED: DOCUSATE SODIUM 100 MG CAP PO SCH (09:00)
[2019-10-06 12:00] VITALS: BP 137/72
[2019-10-06] MEDS: ONDANSETRON 4MG/2ML VIAL (J2405) IV PRN (13:03)
--- NOTE | 2019-10-06 15:16 | IPNPDOC ---
Subjective Date Seen The patient was seen on 10/06/19. Subjective Chief Complaint/HPI Nursing reports that Terrie has not been vomiting in the last few hours. She has also reportedly had 2-3 smaller bowel movements (though none are charted) since admission. She is tolerating the medications for colitis without difficulty. General: Reports: ROS Unobtainable (secondary to non-verbal status) Pulmonary: Denies: Cough Cardiovascular: Denies: Chest Pain, Palpitations Genitourinary: Denies: Dysuria Psych: Reports: Mood Normal Objective Physical Examination General Exam: Positive: Alert, Cooperative, No Acute Distress (sitting in a chair and watching TV when I entered the room) Eye Exam: Positive: Conjunctiva & lids normal; Negative: Sclera icteric ENT Exam: Positive: Mucous membr. moist/pink Neck Exam: Positive: Supple; Negative: Lymphadenopathy Chest Exam: Positive: Clear to auscultation, Normal air movement Heart Exam: Positive: Rate Normal, Normal S1, Normal S2; Negative: Murmurs Abdomen Exam: Positive: Normal bowel sounds, Soft; Negative: Tenderness (to light palpation) Extremity Exam: Negative: Edema Neuro Exam: Negative: Normal Speech (non-verbal) Psych Exam: Negative: Oriented x 3 Assessment /Plan Problems (1) Acute colitis Status: Acute Problem Text: She is admitted with colitis, which may at least in part be serocolitis from her chronic constipation. She is on Zosyn and afebrile. She was reportedly vomiting prior to admission, but this has stopped. (2) Chronic constipation Status: Chronic Problem Text: She seems to have an acute worsening of her chronic constipation. She is on Miralax, Colace and MOM for this. She has had several small BMs per nursing; I asked them to make sure that they are carefully documenting them. (3) Severe intellectual disability Status: Chronic Problem Text: She lives for and is cared for in [facility]. (4) Spastic cerebral palsy Status: Chronic Problem Text: She lives and received her therapy in [facility]. I will consult PT and OT to continue her maintenance therapy while she is here. (5) H/O deep venous thrombosis Status: Chronic Problem Text: On Xarelto. (6) Impaired glucose tolerance Problem Text: Right now she is on Accu-Checks and ISS. I'm not sure she is on this much therapy while at [facility]. Perhaps this could be clarified with her PCP tomorrow. Plan/VTE VTE Prophylaxis Ordered?: Yes (Xarelto) VS, I&O, 24H, Fishbone Vital Signs/I&O Vital Signs Date Time Temp Pulse Resp B/P (MAP) Pulse Ox O2 Delivery O2 Flow Rate FiO2 10/06/19 08:57 75 134/75 10/06/19 07:36 98.0 18 98 Room Air I&O- Last 24 Hours up to 6 AM 10/06/19 06:00 Intake Total 3700 ml Output Total 200 ml Balance 3500 ml Laboratory Data 24H LABS Laboratory Tests 2 10/05/19 17:46: Immature Granulocyte % (Auto) 0.4, Neutrophils (%) (Auto) 84.0H, Lymphocytes (%) (Auto) 13.4L, Monocytes (%) (Auto) 1.9, Eosinophils (%) (Auto) 0.0, Basophils (%) (Auto) 0.3, Neutrophils # (Auto) 12.5H, Lymphocytes # (Auto) 2.0, Monocytes # (Auto) 0.3, Eosinophils # (Auto) 0.0, Basophils # (Auto) 0.0, Nucleated Red Blood Cells % (auto) 0.0, Lactic Acid Level 3.7*H, Total Bilirubin 0.3, Direct Bilirubin 0.1, Aspartate Amino Transf (AST/SGOT) 32, Alanine Aminotransferase (ALT/SGPT) 37, Alkaline Phosphatase 136H, Total Creatine Kinase 76, Creatine Kinase MB 1.0, Creatine Kinase MB Relative Index 1.32, Troponin I < 0.02, Total Protein 7.7, Albumin 3.7, Albumin/Globulin Ratio 0.93L, Lipase 139, Influenza Type A (RT-PCR) NEGATIVE, Influenza Type B (RT-PCR) NEGATIVE 10/05/19 17:52: POC Glucose (Misc Panel) 181H, POC Sodium (Misc Panel) 142, POC Potassium (Misc Panel) 3.9, POC Chloride (Misc Panel) 103, POC Total CO2 (Misc Panel) 29.0H, POC Blood Urea Nitrogen (Misc Panel 10, POC Ionized Calcium (Misc Panel) 5.0, POC Creatinine (Misc Panel) 0.7, POC Hematocrit (Misc Panel) 47.0 10/05/19 22:39: Lactic Acid Followup at 4 Hours 2.3*H 10/06/19 02:53: Bedside Glucose (Misc Panel) 92 10/06/19 04:54: Nucleated Red Blood Cells % (auto) 0.0, Anion Gap 4L, Glomerular Filtration Rate > 60.0, Estimated Mean Plasma Glucose 128H, Hemoglobin A1c 6.1, Calcium Level 8. 5, Magnesium Level 2.2 10/06/19 12:26: Bedside Glucose (Misc Panel) 100 CBC/BMP Laboratory Tests 10/05/19 17:46 10/06/19 04:54 Benny Godoy MD Oct 06, 2019 15:16
[2019-10-06 15:36] VITALS: BP 151/80
[2019-10-06 20:00] VITALS: BP 138/92
[2019-10-07] VITALS (7 sets, daily range): BP systolic 121–169; BP diastolic 67–92
[2019-10-07] MEDS: NS 1,000 ML IV SCH ×2 (03:01→18:41)
[2019-10-07] MEDS: PIPERACILLIN/TAZOBACTAM SOD 3.375 GM in D5W MINI-BAG PLUS 50 ML IV SCH ×3 (04:09→22:03)
[2019-10-07] MEDS: HumaLOG INSULIN (NovoLOG) PER UNIT SC SCH (07:30)
[2019-10-07 08:14] LABS: BASO % 0.3 % (0.0-1.0); EOS # 0.2 10^3/uL (0.0-0.5); EOS % 1.6 % (0.0-3.0); HEMATOCRIT 41.3 % (36.0-47.0); HEMOGLOBIN 12.7 g/dl (12.0-15.5); LYMPH # 2.7 10^3/uL (1.5-5.0); MEAN CORPUSCULAR HGB CONC 30.8 g/dl (32.0-36.5); MEAN CORPUSCULAR VOLUME 87.7 fl (80.0-96.0); MONO # 0.7 10^3/uL (0.0-0.8); MONO % 6.9 % (0.0-5.0); NEUTROPHILS # 6.3 10^3/uL (1.5-8.5); PLATELET COUNT, AUTOMATED 254 10^3/uL (150-450); RED BLOOD COUNT 4.71 10^6/uL (4.00-5.40); WHITE BLOOD COUNT 9.8 10^3/uL (4.0-10.0)
[2019-10-07 08:41] LABS: ALT/SGPT 32 U/L (12-78); BILIRUBIN,TOTAL 0.4 MG/DL (0.2-1.0); BLOOD UREA NITROGEN 8 MG/DL (7-18); CALCIUM LEVEL 8.7 MG/DL (8.5-10.1); CARBON DIOXIDE LEVEL 30 MEQ/L (21-32); CHLORIDE LEVEL 108 MEQ/L (98-107); CREATININE FOR GFR 0.73 MG/DL (0.55-1.30); GLOMERULAR FILTRATION RATE > 60.0 (>51); GLUCOSE, FASTING 106 MG/DL (70-100); POTASSIUM SERUM 3.7 MEQ/L (3.5-5.1); SODIUM LEVEL 143 MEQ/L (136-145); TOTAL PROTEIN 6.4 GM/DL (6.4-8.2)
[2019-10-07] MEDS: PARoxetine 25 MG CR TAB (PAXIL CR) PO SCH (08:43)
[2019-10-07] MEDS: CALCIUM CARBONATE 500 MG CHEW U/D PO SCH ×3 (08:43→22:03)
[2019-10-07] MEDS: DOCUSATE SODIUM 100 MG CAP PO SCH ×2 (08:44→22:02)
[2019-10-07] MEDS: BACLOFEN 10 MG TAB PO SCH ×2 (08:44→22:02)
[2019-10-07] MEDS: LORATADINE 10 MG TAB PO SCH (08:44)
[2019-10-07] MEDS: CALCIUM/VITAMIN D 500 MG TAB PO SCH ×2 (08:44→22:02)
--- NOTE | 2019-10-07 09:22 | REP ---
Soft-tissue ultrasound left breast: History: Follow-up chest x-ray abnormality 10/05/2019. Comparison mammography March 28, 2019. Sonographic findings: Fairly homogeneous fatty breast texture is seen sonographically. The entire left breast is scanned. No mass, cyst or acoustic evidence of architectural distortion. Review of the chest x-ray suggests that the density in question represents the patient's left hand superimposed on the PA radiograph. Impression: BIRADS category one negative findings. Consider repeat chest x-ray. Electronically Signed by Yonny Sánchez MD 10/07/2019 05:24 P
--- NOTE | 2019-10-07 10:10 | IPNPDOC ---
Subjective Date Seen The patient was seen on 10/07/19. Subjective Chief Complaint/HPI Pt this morning denies pain, also confirmed with nursing. She has not taken her pills or had much to drink, her nurse is hoping this will go better once [facility] staff present. General: Denies: Fatigue Constitutional: Denies: Chills, Fever Pulmonary: Denies: Dyspnea, Cough Gastrointestinal: Denies: Nausea, Vomiting Neurological: Denies: Weakness Psych: Reports: Mood Normal Objective Physical Examination General Exam: Positive: Alert, No Acute Distress (sitting in a chair and watching TV when I entered the room) ENT Exam: Positive: Mucous membr. moist/pink Neck Exam: Positive: Supple; Negative: Lymphadenopathy Chest Exam: Positive: Clear to auscultation, Normal air movement Heart Exam: Positive: Rate Normal, Normal S1, Normal S2; Negative: Murmurs Abdomen Exam: Positive: Normal bowel sounds, Soft; Negative: Tenderness Extremity Exam: Negative: Edema Neuro Exam: Negative: Normal Speech Psych Exam: Negative: Oriented x 3 Assessment /Plan Problems (1) Acute colitis Status: Acute Problem Text: 10/07 Afebrile, WBC down, will change Zsyn to Augmentin, cont with bowel care, advance diet as tlerated, no longer needs PCU, will transfer to [place]. 10/06 She is admitted with colitis, which may at least in part be stercoral from her chronic constipation. She is on Zosyn and afebrile. She was reportedly vomiting prior to admission, but this has stopped. (2) Chronic constipation Status: Chronic Problem Text: She seems to have an acute worsening of her chronic constipation. She is on Miralax, Colace and MOM for this. She has had several small BMs per nursing; I asked them to make sure that they are carefully documenting them. (3) Severe intellectual disability Status: Chronic Problem Text: She lives for and is cared for in [facility]. (4) Spastic cerebral palsy Status: Chronic Problem Text: She lives and received her therapy in [facility]. I will consult PT and OT to continue her maintenance therapy while she is here. (5) H/O deep venous thrombosis Status: Chronic Problem Text: On Xarelto. (6) Impaired glucose tolerance Problem Text: Right now she is on Accu-Checks and ISS. I'm not sure she is on this much therapy while at [facility]. Perhaps this could be clarified with her PCP tomorrow. Plan/VTE VTE Prophylaxis Ordered?: Yes (Xarelto) VS, I&O, 24H, Fishbone Vital Signs/I&O Vital Signs Date Time Temp Pulse Resp B/P (MAP) Pulse Ox O2 Delivery O2 Flow Rate FiO2 10/07/19 08:44 80 169/92 10/07/19 08:15 98.2 18 93 Room Air I&O- Last 24 Hours up to 6 AM 10/07/19 06:00 Intake Total 1650 ml Output Total 0 ml Balance 1650 ml Laboratory Data 24H LABS Laboratory Tests 2 10/06/19 12:26: Bedside Glucose (Misc Panel) 100 10/06/19 17:13: Bedside Glucose (Misc Panel) 108H 10/06/19 20:29: Bedside Glucose (Misc Panel) 88 10/07/19 07:38: Bedside Glucose (Misc Panel) 96 10/07/19 07:49: Immature Granulocyte % (Auto) 0.2, Neutrophils (%) (Auto) 64.0, Lymphocytes (%) (Auto) 27.0, Monocytes (%) (Auto) 6.9H, Eosinophils (%) (Auto) 1.6, Basophils (%) (Auto) 0.3, Neutrophils # (Auto) 6.3, Lymphocytes # (Auto) 2.7, Monocytes # (Auto) 0.7, Eosinophils # (Auto) 0.2, Basophils # (Auto) 0.0, Nucleated Red Blood Cells % (auto) 0.0, Anion Gap 5L, Glomerular Filtration Rate > 60.0, Calcium Level 8.7, Total Bilirubin 0.4, Aspartate Amino Transf (AST/SGOT) 28, Alanine Aminotransferase (ALT/SGPT) 32, Alkaline Phosphatase 94, Total Protein 6.4, Albumin 3.0L, Albumin/Globulin Ratio 0.88L CBC/BMP Laboratory Tests 10/07/19 07:49 DAVION MCKEON PA-C Oct 07, 2019 10:10 Yovani Solorzano M.D. Oct 07, 2019 16:06
[2019-10-07] MEDS: ATORVASTATIN 10 MG TAB PO SCH (22:02)
[2019-10-07] MEDS: RIVAROXABAN 20 MG TAB (XARELTO) PO SCH (22:02)
[2019-10-08 02:00] VITALS: BP 129/78
[2019-10-08] MEDS: PIPERACILLIN/TAZOBACTAM SOD 3.375 GM in D5W MINI-BAG PLUS 50 ML IV SCH (04:51)
[2019-10-08 06:00] VITALS: BP 128/80
[2019-10-08 06:05] LABS: HEMATOCRIT 37.5 % (36.0-47.0); HEMOGLOBIN 11.7 g/dl (12.0-15.5); MEAN CORPUSCULAR HEMOGLOBIN 27.1 pg (27.0-33.0); MEAN CORPUSCULAR HGB CONC 31.2 g/dl (32.0-36.5); MEAN CORPUSCULAR VOLUME 86.8 fl (80.0-96.0); PLATELET COUNT, AUTOMATED 244 10^3/uL (150-450); RED BLOOD COUNT 4.32 10^6/uL (4.00-5.40); WHITE BLOOD COUNT 8.7 10^3/uL (4.0-10.0)
[2019-10-08] MEDS: DOCUSATE SODIUM 100 MG CAP PO SCH (08:59)
[2019-10-08] MEDS: CALCIUM/VITAMIN D 500 MG TAB PO SCH (08:59)
[2019-10-08] MEDS: LORATADINE 10 MG TAB PO SCH (08:59)
[2019-10-08] MEDS: CALCIUM CARBONATE 500 MG CHEW U/D PO SCH (08:59)
[2019-10-08] MEDS: PARoxetine 25 MG CR TAB (PAXIL CR) PO SCH (08:59)
[2019-10-08] MEDS: BACLOFEN 10 MG TAB PO SCH (08:59)
[2019-10-08 09:01] VITALS: BP 129/81
[2019-10-08] MEDS: NS 1,000 ML IV SCH (09:06)
[2019-10-08] MEDS ORDERED: AMLO25TA PO (09:48)
[2019-10-08] MEDS ORDERED: AMOX875T2 PO (09:48)
[2019-10-08] MEDS ORDERED: MOM30SS2 PO (09:48)
[2019-10-08 10:00] VITALS: BP 130/76
[2019-10-08] MEDS ORDERED: AUGMENTIN 875 MG TAB PO SCH (11:00)
--- NOTE | 2019-10-08 13:03 | DSES ---
DATE OF ADMISSION: 10/05/2019 DATE OF DISCHARGE: 10/08/2019 PRIMARY CARE PROVIDER: Yovani Solorzano MD Attending today is Lucius Coyle MD. This is a 59-year-old female patient who presented to [facility] Emergency Room, sent in from [facility] ([facility]) with concerns for high blood pressure that was noted earlier in the day. She had also been vomiting and sweating. She was evaluated in the emergency room, and chest x-ray was noted with visualized lung clement which were clear. The left lower lung zone is obscured by a large density presumed to be within the left breast. CT of the abdomen noted impacted feces in the rectosigmoid colon, mild thickening of the wall of the rectum consistent with colitis. She was admitted to the hospital for acute colitis, started on clear-liquid diet, intravenous (IV) fluids, as well as Zosyn and Zofran. Her vomiting has resolved. White blood cell count has normalized. She has been afebrile. Her Zosyn has been transitioned over to Augmentin. She has been disimpacted and is moving her bowels. Her bowel care has been advanced. Her amlodipine 2.5 mg daily was added with improvement in her blood pressures. The left breast mass was evaluated with an ultrasound, which was benign. Consider x-ray in the outpatient setting to further followup. The patient has had her diet advanced. She seems to be doing well; and, therefore, she will be returned to [facility], where she resides. Her discharge diagnoses include: 1. Acute colitis. 2. Chronic constipation. 3. Intellectual disability. 4. Spastic cerebral palsy. 5. History of deep venous thrombosis (DVT). 6. Impaired glucose tolerance. DISCHARGE MEDICATIONS: Include: - Colace 100 mg by mouth twice a day - amlodipine 2.5 mg daily - Augmentin 875/125 one tablet by mouth twice a day - milk of magnesia 30 mg by mouth daily as needed for constipation - atorvastatin 10 mg by mouth nightly - baclofen 10 mg by mouth twice a day - calcium 600 with vitamin D one tablet twice a day - Cimetidine 200 mg by mouth nightly - vitamin D 50,000 units twice weekly - loratadine 10 mg daily - metformin 500 mg by mouth nightly - paroxetine 25 mg by mouth daily - MiraLAX 17 grams by mouth daily as needed for constipation - Xarelto 20 mg by mouth before bed DISCHARGE PLAN: Will be to followup with her primary care provider in 1 week. Activity should be as tolerated. Her diet is high in fiber, small pieces, ground meat, thin liquids. edited: 10/09/2019 0718 sissy DAVID
[2019-10-11 00:08] LABS: Chitobioside Carbohydrat (ACCA 16 units (0-90); Laminaribioside Carbohyd (ALCA 4 units (0-60); Mannobioside Carbohydrat (AMCA 58 units (0-100); Saccharomyces cerevisiae IgG A 4 units (0-50)
== END 2019-10-08 13:30 | disposition home or self-care (01) | DRG 392 ==
LOC: M ED 15:52 → M ED INP 20:34 → ENRESERV 21:39 → M PCU 22:17 → M MSPAV 10-07 14:50
PROVIDERS: ADMIT Internal Medicine; ATTEND Family Medicine
DX: K52.9 Noninfective gastroenteritis and colitis, unspecified (principal); G80.1 Spastic diplegic cerebral palsy; I82.501 Chronic embolism and thrombosis of unspecified deep veins of right lower extremity; F72 Severe intellectual disabilities; K59.09 Other constipation; Z79.899 Other long term (current) drug therapy; Z79.01 Long term (current) use of anticoagulants; G40.909 Epilepsy, unspecified, not intractable, without status epilepticus; R73.01 Impaired fasting glucose; N63.0 Unspecified lump in unspecified breast; Z88.8 Allergy status to other drugs, medicaments and biological substances; Z91.018 Allergy to other foods; E03.9 Hypothyroidism, unspecified

== ENCOUNTER → 2019-10-16 | Outpatient (CLI) | payer MEDICARE, MEDICAID ==
[~2019-10-16] MED LIST changes: +AMLO2.5T3 PO; +AMLO25TA PO; +AMOX875T2 PO; +ATOR1TAB19 PO; +CALC600T18 PO; +CALCCAP4 PO; +CEPH500C PO; +GNP200TA4 PO; +METF-791 PO; +MIRA1POW3 PO; +MOM30SS2 PO; +VALI5TAB PO; +VITA50005 PO
== END ==
LOC: M PLAIMG 15:04
PROVIDERS: ATTEND Physician Assistant Medical
DX: K52.9 Noninfective gastroenteritis and colitis, unspecified (principal)
CPT/HCPCS: 99495; G0463

== ENCOUNTER → 2019-10-17 | Outpatient (CLI) | payer MEDICARE, MEDICAID ==
[~2019-10-17] MED LIST changes: -AMLO2.5T3 PO; -CALC600T18 PO; -CALCCAP4 PO; -CEPH500C PO; -MIRA1POW3 PO; -VALI5TAB PO
--- NOTE | 2019-10-17 14:50 | REP ---
Clinical: Acute colitis. Abdominal pain. Technique: Upright view of the chest with supine and upright views of the abdomen and pelvis. Findings: Frontal upright view of the chest demonstrates no acute cardiopulmonary process or free air below the diaphragm to suspect pneumoperitoneum. Supine and upright views of the abdomen and pelvis demonstrate nonspecific bowel gas pattern without obstruction or perforation. No organomegaly. No abnormal calcifications. Skeletal structures normal for age. Impression: Nonspecific bowel gas pattern. Electronically Signed by Branden Horton MD 10/17/2019 02:41 P
--- NOTE | 2019-10-17 14:51 | REP ---
Clinical: Trauma. Technique: Four views of the right hemithorax. Findings: Multiple views of the right hemithorax demonstrates no obvious acute rib fracture or pathology. Impression: Normal right rib series Electronically Signed by Branden Horton MD 10/17/2019 02:43 P
== END ==
LOC: M RAD 13:12
PROVIDERS: ATTEND Physician Assistant Medical
DX: K52.9 Noninfective gastroenteritis and colitis, unspecified (principal)

== ENCOUNTER 2019-10-30 16:17 | Inpatient (IN) | payer MEDICARE, MEDICAID ==
[~2019-10-30] VITALS: Ht 147.3 cm; Wt 55.5 kg
[2019-10-30] MEDS ORDERED: CALCCAP4 PO (16:38)
[2019-10-30] MEDS ORDERED: ACETAMINOPHEN 650 MG SUPP PR ONE (17:00)
[2019-10-30 17:47] LABS: BASO % 0.2 % (0.0-1.0); EOS % 0.1 % (0.0-3.0); HEMATOCRIT 40.5 % (36.0-47.0); HEMOGLOBIN 12.6 g/dl (12.0-15.5); LYMPH # 1.8 10^3/uL (1.5-5.0); MEAN CORPUSCULAR HEMOGLOBIN 26.8 pg (27.0-33.0); MEAN CORPUSCULAR HGB CONC 31.1 g/dl (32.0-36.5); MEAN CORPUSCULAR VOLUME 86.2 fl (80.0-96.0); MONO # 1.1 10^3/uL (0.0-0.8); MONO % 6.1 % (0.0-5.0); NEUTROPHILS # 15.1 10^3/uL (1.5-8.5); NEUTROPHILS % 82.8 % (36.0-66.0); PLATELET COUNT, AUTOMATED 290 10^3/uL (150-450); WHITE BLOOD COUNT 18.2 10^3/uL (4.0-10.0)
[2019-10-30 17:58] LABS: INFLUENZA A AMPLIFICATION NEGATIVE (NEGATIVE); INFLUENZA B AMPLIFICATION NEGATIVE (NEGATIVE)
[2019-10-30] MEDS ORDERED: LORazepam 2 MG/ML VIAL (J2060) IV STA (18:18)
--- NOTE | 2019-10-30 18:22 | REP ---
Portable chest x-ray: Single view. History: Fever. Comparison imaging is from October 17, 2019. Findings: There is an old ununited transverse fracture through the left clavicle, unchanged. Mild osteoarthritis is seen in the glenohumeral articulations bilaterally. No other significant bony abnormality is seen. EKG electrodes are seen. The lungs are well inflated and clear. The heart is not enlarged. Pulmonary vasculature is not increased. No significant bony abnormality. Impression: No active cardiopulmonary disease. Electronically Signed by Yonny Sánchez MD 10/30/2019 07:36 P
[2019-10-30 18:28] LABS: ALT/SGPT 27 U/L (12-78); BILIRUBIN,DIRECT 0.2 MG/DL (0.0-0.2); BILIRUBIN,TOTAL 0.4 MG/DL (0.2-1.0); BLOOD UREA NITROGEN 16 MG/DL (7-18); CALCIUM LEVEL 8.8 MG/DL (8.5-10.1); CARBON DIOXIDE LEVEL 27 MEQ/L (21-32); CHLORIDE LEVEL 104 MEQ/L (98-107); CREATININE FOR GFR 0.92 MG/DL (0.55-1.30); GLOMERULAR FILTRATION RATE > 60.0 (>51); GLUCOSE, FASTING 163 MG/DL (70-100); POTASSIUM SERUM 4.4 MEQ/L (3.5-5.1); SODIUM LEVEL 138 MEQ/L (136-145); THYROID STIMULATING HORMONE 0.125 uIU/ML (0.358-3.740); TOTAL PROTEIN 6.8 GM/DL (6.4-8.2)
[2019-10-30] MEDS ORDERED: NS 1,000 ML IV ONE ×3 (19:00→23:30)
[2019-10-30] MEDS ORDERED: ISOVUE-370 76% 100ML VIAL (Q9967) As Ordered ONE (20:51)
[2019-10-30] MEDS: ATORVASTATIN 10 MG TAB PO SCH (21:00)
[2019-10-30] MEDS: DOCUSATE SODIUM 100 MG CAP PO SCH (21:00)
[2019-10-30] MEDS: BACLOFEN 10 MG TAB PO SCH (21:00)
--- NOTE | 2019-10-30 22:04 | REPVR ---
PROCEDURE INFORMATION: Exam: CT Abdomen And Pelvis With Contrast Exam date and time: 10/30/2019 9:30 PM Age: 59 years old Clinical indication: Abdominal pain; Additional info: Fever of unknown origin TECHNIQUE: Imaging protocol: Computed tomography of the abdomen and pelvis with intravenous contrast. Radiation optimization: All CT scans at this facility use at least one of these dose optimization techniques: automated exposure control; mA and/or kV adjustment per patient size (includes targeted exams where dose is matched to clinical indication); or iterative reconstruction. Contrast material: ISOVUE 370; Contrast volume: 100 ml; Contrast route: IV; COMPARISON: CT ABD/PEL W/IV CONTRAST ONLY 10/05/2019 7:16 PM FINDINGS: Lungs: No suspicious mass or airspace process in the visualized lung bases. Liver: Liver appears normal with no focal abnormality. Gallbladder and bile ducts: Gallbladder is present and shows no evidence of gallstone. Pancreas: Pancreas appears normal. No focal mass or peripancreatic inflammation. Spleen: Spleen appears homogeneous without focal mass. Adrenals: Adrenal glands are normal in appearance. Kidneys and ureters: Kidneys appear normal, with no stone, solid mass or hydronephrosis. Stomach and bowel: No evidence of small bowel obstruction. Large volume of stool is seen throughout the colon. No evidence of acute diverticulitis. Appendix: Appendix is not seen. No RLQ inflammation to suggest appendicitis. Intraperitoneal space: No pneumoperitoneum. Vasculature: Atherosclerotic change present in the aorta, without aneurysm. Main portal and splenic veins enhance normally. Lymph nodes: No enlarged lymph nodes. Bladder: Urinary bladder appears normal. Reproductive: No enlargement of the uterus or ovaries Bones/joints: Remote L3 and L4 left transverse process fractures Soft tissues: Unremarkable. IMPRESSION: 1. No acute surgical or inflammatory process and no explanation for fever. 2. Large volume of colonic stool suggesting the possibility of constipation without rectal fecal impaction. Electronically signed by: Maikol Casas On 10/30/2019 22:03:56 PM
--- NOTE | 2019-10-30 22:05 | REPVR ---
PROCEDURE INFORMATION: Exam: CT Chest With Contrast Exam date and time: 10/30/2019 9:30 PM Age: 59 years old Clinical indication: Chest pain; Additional info: Fever of unknown origin TECHNIQUE: Imaging protocol: Computed tomography of the chest with intravenous contrast. Radiation optimization: All CT scans at this facility use at least one of these dose optimization techniques: automated exposure control; mA and/or kV adjustment per patient size (includes targeted exams where dose is matched to clinical indication); or iterative reconstruction. Contrast material: ISOVUE 370; Contrast volume: 100 ml; Contrast route: IV COMPARISON: CT Chest with contrast 02/10/2016 11:22 AM FINDINGS: No thoracic aortic aneurysm or dissection. No pleural effusion or pneumothorax. Pulmonary vascular/interstitial pattern does not suggest active pulmonary edema. No overt cardiac enlargement or abnormal volume of pericardial fluid. No enlarged lymph nodes. There may be mild circumferential mural edema of the distal esophagus. No suspicious lung mass or air space process. No central endobronchial lesion. Bony structures show no acute fracture or destructive process. IMPRESSION: Suggestion of circumferential mural edema involving the distal esophagus which can be seen with reflux esophagitis and other infiltrative processes. No perforation. Clinical correlation advised. No other concerning thoracic abnormality Electronically signed by: Maikol Casas On 10/30/2019 22:05:07 PM
[2019-10-30] MEDS ORDERED: SODIUM CHLORIDE 0.9% 1000ML IV STA (23:37)
--- NOTE | 2019-10-30 23:42 | IPNPDOC ---
Text Note Date of Service Date of Admission 10/30/19 The patient was seen on 10/31/19 at 1203AM Ms. Connell is a 59-year-old female with a history of developmental disability, cerebral palsy, prediabetes, right lower extremity DVT, chronic constipation, hypothyroidism, & seizure disorder who was brought in from her [facility] for evaluation of fever. Per d/w the quality assurance group leader none of the other residents are sick and the patient ate breakfast but didn't eat lunch or dinner. 1. SIRS source TBD -Plan: sepsis protocol w lactic acid, IVF, vanc & meropenum / f/u blood cx and UA / if a source of infection can't be found the day time team may consider LP. VS,Fishbone, I+O VS, Fishbone, I+O Laboratory Tests 10/30/19 17:30 Vital Signs Date Time Temp Pulse Resp B/P (MAP) Pulse Ox O2 Delivery O2 Flow Rate FiO2 10/30/19 21:56 89 16 100/58 (72) 98 Room Air 10/30/19 18:12 99.0 AREN MENA MD Oct 30, 2019 23:42
[2019-10-30 23:44] LABS: FREE T4 0.96 NG/DL (0.76-1.46)
[2019-10-30] MEDS ORDERED: VANCOMYCIN HCL 1,000 MG, VIAL MATE ADAPTER 1 EACH in D5W 250 ML IV ONE (23:45)
[2019-10-30] MEDS ORDERED: VALI5TAB PO (23:51)
[2019-10-30] MEDS ORDERED: VALI10TA PO (23:51)
[2019-10-30] MEDS ORDERED: MIRA1POW3 PO (23:51)
[2019-10-30] MEDS ORDERED: CALC600T18 PO (23:51)
[2019-10-30] MEDS ORDERED: AMLO2.5T3 PO (23:51)
[2019-10-31] MEDS ORDERED: VANCOMYCIN HCL 1,000 MG, VIAL MATE ADAPTER 1 EACH in D5W 250 ML IV SCH (00:15)
[2019-10-31] MEDS ORDERED: MIRALAX *UNIT DOSE* 17GM PACKET PO PRN ×2 (00:45)
[2019-10-31] MEDS ORDERED: diazePAM 10 MG TAB PO PRN (00:45)
[2019-10-31] MEDS ORDERED: diazePAM 5 MG TAB PO PRN (00:45)
[2019-10-31] MEDS ORDERED: MEROPENEM INJ 1 GM in IV 1 EA IV SCH (02:00)
[2019-10-31 02:12] LABS: BASO % 0.3 % (0.0-1.0); EOS % 0.2 % (0.0-3.0); HEMATOCRIT 34.9 % (36.0-47.0); HEMOGLOBIN 10.7 g/dl (12.0-15.5); LYMPH # 1.9 10^3/uL (1.5-5.0); LYMPH % 12.5 % (24.0-44.0); MEAN CORPUSCULAR HEMOGLOBIN 26.8 pg (27.0-33.0); MEAN CORPUSCULAR HGB CONC 30.7 g/dl (32.0-36.5); MEAN CORPUSCULAR VOLUME 87.5 fl (80.0-96.0); MONO # 1.1 10^3/uL (0.0-0.8); MONO % 7.4 % (0.0-5.0); NEUTROPHILS # 12.1 10^3/uL (1.5-8.5); NEUTROPHILS % 78.8 % (36.0-66.0); PLATELET COUNT, AUTOMATED 223 10^3/uL (150-450); RED BLOOD COUNT 3.99 10^6/uL (4.00-5.40); WHITE BLOOD COUNT 15.4 10^3/uL (4.0-10.0)
--- NOTE | 2019-10-31 03:45 | HPEPDOC ---
[facility] Medical History & Physical Date of Admission Oct 30, 2019 Date of Service: Oct 30, 2019 Primary Care Physician: Yovani Solorzano M.D. Attending Physician: AREN MENA MD History and Physical CHIEF COMPLAINT: Fever HISTORY OF PRESENT ILLNESS: Patient is a 59-year-old female with partial disability who was brought to the emergency department by [facility] staff with a fever. Patient had a fever of 102.7 earlier today. Patient was refusing taking medications. Patient was screaming out in pain but they're unable to figure out exactly what was bothering her. When the fever was rechecked, temperature was 103.1. Patient was brought to the emergency department. So far, workup has been negative for any nidus of infection. Patient did have one episode of vomiting at the [facility]. Patient was eating breakfast without difficulty however, the patient did not eat or drink anything at lunch. custodial staff was worried as this was not her baseline. REVIEW OF SYSTEMS: Unable to be obtained secondary to patient's intellectual disability PAST MEDICAL HISTORY: 1. Cerebral palsy. 2. Hepatic steatosis. 3. Glucose intolerance 4. Right lower showing a DVT 5. Hypothyroidism 6. Eczema. PAST SURGICAL HISTORY: No documented surgeries SOCIAL HISTORY: Patient resides at [facility]. Patient is not smoke or drink alcohol. FAMILY HISTORY: Unable to be obtained ALLERGIES: Please see below. HOME MEDICATIONS: Please see below. PHYSICAL EXAMINATION: VITAL SIGNS: Temperature 97.4, pulse 82, respiratory rate 16, blood pressure 132/88, pulse oximetry 98% on room air. General: Alert but not oriented female patient who was sleeping in the bed when I walked in the room. Patient will wake up for the exam. Patient appeared to be in any acute distress. HEENT: Normocephalic, atraumatic, moist mucous membranes. Neck: No lymphadenopathy Cardiac: Regular rate and rhythm, no murmurs, normal S1, normal S2 Pulm: Clear to auscultation bilaterally. No wheezes, rhonchi, rales Abd: Nondistended, patient reacted when I palpated her suprapubic area but did not reaction appeared comfortable during palpation of the other parts of the abdomen. Abdomen was soft Ext: No edema bilateral lower extremities LABORATORY DATA: See below. IMAGING: A chest x-ray was reported to show no active cardiopulmonary disease. A CT of the chest performed without contrast was reported to show suggestion of circumferential mural edema involving the distal esophagus which can be seen in reflux esophagitis and other infiltrative processes. No perforation. Clinical correlation advised. No other concerning thoracic abnormality. A CT of the abdomen and pelvis with IV contrast was reported to show no acute surgical an inflammatory process and no explanation for fever. Large volume of colonic stool suggesting the possibility of constipation without rectal fecal impaction. MICROBIOLOGY: Please see below. ASSESSMENT: Patient is a 59-year-old female who presented to the hospital with a fever who appears to be septic without known cause. PLAN: 1. Sepsis. Cause to be determined. Patient was febrile and tachycardic when she arrived to the emergency department. Patient's blood pressure became low h owever, he never became truly hypotensive. Patient is receiving fluid bolus as well as IV vancomycin and meropenem for broad coverage. We will continue search for source of infection. Influenza panel was negative. 2. Fever. Patient's urinary analysis does not appear to show urinary tract infection. Influenza panel is negative. Blood cultures are pending. We will continue to monitor the patient's vital signs. 3. Cerebral palsy with spastic paralysis. Continue home treatment. 4. Glucose intolerance. Patient will get a at bedtime fingersticks. 5. History of DVT. Continue home Xarelto. 6. Hypothyroidism. Continue home Synthroid. 7. DVT prophylaxis: Xarelto 8. CODE STATUS: Full code. Disposition: Patient will be admitted to the medical surgical floor on telemetry for further monitoring. We expect a greater than 2 midnights today. Laboratory Data Labs 24H Laboratory Tests 2 10/30/19 17:08: Influenza Type A (RT-PCR) NEGATIVE, Influenza Type B (RT-PCR) NEGATIVE 10/30/19 17:30: Immature Granulocyte % (Auto) 0.8, Neutrophils (%) (Auto) 82.8H, Lymphocytes (%) (Auto) 10.0L, Monocytes (%) (Auto) 6.1H, Eosinophils (%) (Auto) 0.1, Basophils (%) (Auto) 0.2, Neutrophils # (Auto) 15.1H, Lymphocytes # (Auto) 1.8, Monocytes # (Auto) 1.1H, Eosinophils # (Auto) 0.0, Basophils # (Auto) 0.0, Nucleated Red Blood Cells % (auto) 0.0, Anion Gap 7L, Glomerular Filtration Rate > 60.0, Calcium Level 8.8, Total Bilirubin 0.4, Direct Bilirubin 0.2, Aspartate Amino Transf (AST/SGOT) 21, Alanine Aminotransferase (ALT/SGPT) 27, Alkaline Phosphatase 112, Total Protein 6.8, Albumin 3.0L, Albumin/Globulin Ratio 0.79L, Thyroid Stimulating Hormone (TSH) 0.125L, Free Thyroxine 0.96 10/30/19 23:56: Urine Color YELLOW, Urine Appearance CLEAR, Urine pH 5.0, Urine Specific [place] >1.060H, Urine Protein NEGATIVE, Urine Glucose (UA) NEGATIVE, Urine Ketones NEGATIVE, Urine Blood 1+H, Urine Nitrite NEGATIVE, Urine Bilirubin NEGATIVE, Urine Urobilinogen 0.2, Urine Leukocyte Esterase TRACEH, Urine WBC (Auto) 5H, Urine RBC (Auto) 4H, Urine Hyaline Casts (Auto) 0, Urine Bacteria (Auto) NEGATIVE, Urine Squamous Epithelial Cells 0, Urine Sperm (Auto) 10/31/19 02:03: Immature Granulocyte % (Auto) 0.8, Neutrophils (%) (Auto) 78.8H, Lymphocytes (%) (Auto) 12.5L, Monocytes (%) (Auto) 7.4H, Eosinophils (%) (Auto) 0.2, Basophils (%) (Auto) 0.3, Neutrophils # (Auto) 12.1H, Lymphocytes # (Auto) 1.9, Monocytes # (Auto) 1.1H, Eosinophils # (Auto) 0.0, Basophils # (Auto) 0.0, Nucleated Red Blood Cells % (auto) 0.0, Lactic Acid Level 1.2 CBC/BMP Laboratory Tests 10/30/19 17:30 10/31/19 02:03 Microbiology Microbiology 10/30/19 Urine Culture, Received Pending 10/30/19 Blood Culture, Received Pending 10/30/19 Blood Culture, Received Pending 10/30/19 Respiratory Virus Panel (PCR) ([facility]) - Final, Complete Home Medications Scheduled Amlodipine Besylate (Amlodipine Besylate) 2.5 Mg Tablet, 2.5 MG PO DAILY Atorvastatin Calcium (Atorvastatin Calcium) 10 Mg Tablet, 10 MG PO QHS Baclofen (Baclofen) 10 Mg Tablet, 10 MG PO BID Calcium Carbonate/Vitamin D3 (Calcium 600-Vit D3 400 Tablet) 1 Each Tablet, 1 TAB PO DAILY Cimetidine (Cimetidine) 200 Mg Tablet, 200 MG PO QHS Docusate Sodium (Colace) 100 Mg Capsule, 100 MG PO BID Ergocalciferol (Vitamin D2) (Vitamin D2) 50,000 Units Cap, 50,000 UNITS PO Q2WK EVERY OTHER RENITA AT QHS Loratadine (Claritin) 10 Mg Tablet, 10 MG PO DAILY Metformin HCl (Metformin HCl ER) 500 Mg Tab.er.24h, 500 MG PO QPM GIVEN AT DINNERTIME Paroxetine HCl (Paxil Cr) 25 Mg Tab.er.24h, 25 MG PO DAILY Rivaroxaban (Xarelto) 20 Mg Tablet, 20 MG PO QPM GIVEN AT DINNERTIME Scheduled PRN Diazepam (Valium) 5 Mg Tablet, 5 MG PO ASDIRECTED PRN for ANXIETY ONE HOUR PRIOR TO MEDICAL APPOINTMENTS Diazepam (Valium) 10 Mg Tablet, 10 MG PO ASDIRECTED PRN for ANXIETY ONE HOUR BEFORE APPONTMENTS Polyethylene Glycol 3350 (Miralax) 17 Gm Powd.pack, 17 GM PO QPM PRN for CONSTIPATION GIVEN ON DAY 3 W/O BM @ 1800 Polyethylene Glycol 3350 (Miralax) 17 Gm Powd.pack, 17 GM PO QPM PRN for CONSTIPATION GIVEN ON DAY 4 W/O BM @ 1800 Allergies Coded Allergies: chlorpromazine (Verified Allergy, Unknown, 01/24/19) meperidine (Verified Allergy, Unknown, 01/24/19) promethazine (Verified Allergy, Unknown, 01/24/19) Grapefruit (Unverified Adverse Reaction, Unknown, REACTION WITH MEDS, 10/23/09) A-FIB/CHADSVASC A-FIB History Current/History of A-Fib/PAF?: No Current PO Anticoag Therapy: Yes Treatment Treatment ordered: Rivaroxaban DURAN CHERRY DO Oct 31, 2019 03:44 AREN MENA MD Nov 02, 2019 04:16
[2019-10-31 04:05] VITALS: BP 123/71
[2019-10-31 06:00] VITALS: BP 122/73
[2019-10-31] MEDS: cefTRIAXone SOD 1 GM in D5W MINI-BAG PLUS 50 ML IV SCH (06:49)
[2019-10-31] MEDS ORDERED: VANCOMYCIN HCL 750 MG, VIAL MATE ADAPTER 1 EACH in D5W 250 ML IV SCH (08:00)
[2019-10-31] MEDS: LORATADINE 10 MG TAB PO SCH (10:27)
[2019-10-31] MEDS: DOCUSATE SODIUM 100 MG CAP PO SCH ×2 (10:27→21:12)
[2019-10-31] MEDS: BACLOFEN 10 MG TAB PO SCH ×2 (10:27→21:00)
[2019-10-31] MEDS: PARoxetine 25 MG CR TAB (PAXIL CR) PO SCH (10:28)
[2019-10-31] MEDS: CALCIUM/VITAMIN D 500 MG TAB PO SCH (10:28)
[2019-10-31] MEDS ORDERED: BISACODYL 10 MG SUPP PR PRN (11:15)
--- NOTE | 2019-10-31 11:18 | IPNPDOC ---
Subjective Date Seen The patient was seen on 10/31/19. Subjective Chief Complaint/HPI fever, fecal impaction Events since last encounter Admitted for fever and vomiting with noted fecal impaction on CT imaging. Polina nash reports patient is uncomfortable on abdominal exam. patient is minimal verbal and unable to provide hx or ROS. She had a similar episode with admission 09/2019 which was relieved with abx and bowel meds. Objective Physical Examination General Exam: Positive: Alert, No Acute Distress Eye Exam: Positive: PERRLA, Conjunctiva & lids normal, EOMI; Negative: Sclera icteric ENT Exam: Positive: Atraumatic, Mucous membr. moist/pink, Pharynx Normal Neck Exam: Positive: Supple; Negative: JVD, thyromegaly Chest Exam: Positive: Clear to auscultation, Normal air movement Heart Exam: Positive: Rate Normal, Regular Rhythm, Normal S1, Normal S2; Negative: Murmurs, Rubs Abdomen Exam: Positive: Normal bowel sounds, Soft, Tenderness; Negative: BS Hyperactive, BS Hypoactive, Hepatospenomegaly, Mass, Hernia, Other Extremity Exam: Positive: Normal pulses; Negative: Clubbing, Cyanosis, Edema Skin Exam: Positive: Nl turgor and temperature; Negative: Rash, Breakdown Psych Exam: Positive: Mental status NL, Mood NL, Oriented x 3 Assessment /Plan Problems (1) Sepsis Problem Text: blood cx pending. patient received multiple IVF bolus overnight. On empiric tx with Imipenem and Vancomycin. Most likely cause is colitis/ileus secondary to constipation/impaction. (2) Chronic constipation Status: Chronic Problem Text: bowel meds ordered. (3) Fever of unknown origin Status: Acute Response to Treatment: Improving (4) H/O deep venous thrombosis Status: Chronic Problem Text: Continue home dose of Xarelto (5) Severe intellectual disability Status: Chronic Problem Text: [facility] (6) Spastic cerebral palsy Status: Chronic Problem Text: decreased mobility contributes to chronic constipation. Plan/VTE VTE Prophylaxis Ordered?: Yes VS, I&O, 24H, Fishbone Vital Signs/I&O Vital Signs Date Time Temp Pulse Resp B/P (MAP) Pulse Ox O2 Delivery O2 Flow Rate FiO2 10/31/19 10:28 78 122/76 10/31/19 06:00 99.8 20 96 Room Air I&O- Last 24 Hours up to 6 AM 10/31/19 05:59 Intake Total 4320 ml Output Total 0 ml Balance 4320 ml Laboratory Data 24H LABS Laboratory Tests 2 10/30/19 17:08: Influenza Type A (RT-PCR) NEGATIVE, Influenza Type B (RT-PCR) NEGATIVE 10/30/19 17:30: Immature Granulocyte % (Auto) 0.8, Neutrophils (%) (Auto) 82.8H, Lymphocytes (%) (Auto) 10.0L, Monocytes (%) (Auto) 6.1H, Eosinophils (%) (Auto) 0.1, Basophils (%) (Auto) 0.2, Neutrophils # (Auto) 15.1H, Lymphocytes # (Auto) 1.8, Monocytes # (Auto) 1.1H, Eosinophils # (Auto) 0.0, Basophils # (Auto) 0.0, Nucleated Red Blood Cells % (auto) 0.0, Anion Gap 7L, Glomerular Filtration Rate > 60.0, Calcium Level 8.8, Total Bilirubin 0.4, Direct Bilirubin 0.2, Aspartate Amino Transf (AST/SGOT) 21, Alanine Aminotransferase (ALT/SGPT) 27, Alkaline Phospha tase 112, Total Protein 6.8, Albumin 3.0L, Albumin/Globulin Ratio 0.79L, Thyroid Stimulating Hormone (TSH) 0.125L, Free Thyroxine 0.96 10/30/19 23:56: Urine Color YELLOW, Urine Appearance CLEAR, Urine pH 5.0, Urine Specific [place] >1.060H, Urine Protein NEGATIVE, Urine Glucose (UA) NEGATIVE, Urine Ketones NEGATIVE, Urine Blood 1+H, Urine Nitrite NEGATIVE, Urine Bilirubin NEGATIVE, Urine Urobilinogen 0.2, Urine Leukocyte Esterase TRACEH, Urine WBC (Auto) 5H, Urine RBC (Auto) 4H, Urine Hyaline Casts (Auto) 0, Urine Bacteria (Auto) NEGATIVE, Urine Squamous Epithelial Cells 0, Urine Sperm (Auto) 10/31/19 02:03: Immature Granulocyte % (Auto) 0.8, Neutrophils (%) (Auto) 78.8H, Lymphocytes (%) (Auto) 12.5L, Monocytes (%) (Auto) 7.4H, Eosinophils (%) (Auto) 0.2, Basophils (%) (Auto) 0.3, Neutrophils # (Auto) 12.1H, Lymphocytes # (Auto) 1.9, Monocytes # (Auto) 1.1H, Eosinophils # (Auto) 0.0, Basophils # (Auto) 0.0, Nucleated Red Blood Cells % (auto) 0.0, Lactic Acid Level 1.2 10/31/19 06:11: Bedside Glucose (Misc Panel) 99 CBC/BMP Laboratory Tests 10/30/19 17:30 10/31/19 02:03 Microbiology Microbiology 10/30/19 Urine Culture, Received Pending 10/30/19 Blood Culture, Received Pending 10/30/19 Blood Culture, Received Pending 10/30/19 Respiratory Virus Panel (PCR) ([facility]) - Final, Complete Estefania Lopez [facility] Oct 31, 2019 11:18
[2019-10-31] MEDS: MIRALAX *UNIT DOSE* 17GM PACKET PO SCH (13:31)
[2019-10-31 14:00] VITALS: BP 124/77
[2019-10-31] MEDS: RIVAROXABAN 20 MG TAB (XARELTO) PO SCH (18:09)
[2019-10-31] MEDS: metFORMIN XR 500MG TAB *GLUCOPHAGE XR PO SCH (18:09)
[2019-10-31] MEDS: SENNA 8.6 MG TAB (SENOKOT) PO SCH (21:00)
[2019-10-31] MEDS: ATORVASTATIN 10 MG TAB PO SCH (21:12)
[2019-10-31 22:00] VITALS: BP 107/58
[2019-11-01] MEDS: cefTRIAXone SOD 1 GM in D5W MINI-BAG PLUS 50 ML IV SCH (05:32)
[2019-11-01 06:00] VITALS: BP 97/61
--- NOTE | 2019-11-01 08:43 | IPNPDOC ---
Subjective Date Seen The patient was seen on 11/01/19. Subjective Chief Complaint/HPI Called to bedside for eval this morning as pt with low SBP, she is nonverbal, unable to contribute to history, nursing without other concerns. [facility] staff member at bedside, she was with the patient yesterday and advised that the pt appears much better today. General: Reports: ROS Unobtainable Objective Physical Examination General Exam: Positive: Alert, No Acute Distress Eye Exam: Positive: Sclera icteric ENT Exam: Positive: Mucous membr. moist/pink Neck Exam: Positive: Supple; Negative: JVD Chest Exam: Positive: Clear to auscultation, Normal air movement Heart Exam: Positive: Rate Normal, Regular Rhythm, Normal S1, Normal S2; Negative: Murmurs, Rubs Abdomen Exam: Positive: Normal bowel sounds, Soft, Tenderness; Negative: Hepatospenomegaly, Mass, Hernia, Other Extremity Exam: Negative: Edema Skin Exam: Positive: Nl turgor and temperature; Negative: Rash, Breakdown Psych Exam: Positive: Mood NL; Negative: Mental status NL, Oriented x 3 Assessment /Plan Problems (1) Sepsis Problem Text: 11/01/2019 urine culture this morning with prelim results of staph aureus, await final result. She was changed yest from imipenem/vanco to rocephin, clinically appears stable. Will cont to monitor pressures, consider additional fluid bolus is pressure remains low, requested this be rechecked. 10/31/2019 blood cx pending. patient received multiple IVF bolus overnight. On empiric tx with Imipenem and Vancomycin. Most likely cause is colitis/ileus secondary to constipation/impaction. (2) Chronic constipation Status: Chronic Problem Text: bowel meds ordered. (3) Fever of unknown origin Status: Acute Response to Treatment: Improving (4) H/O deep venous thrombosis Status: Chronic Problem Text: Continue home dose of Xarelto (5) Severe intellectual disability Status: Chronic Problem Text: resident of [facility] (6) Spastic cerebral palsy Status: Chronic Problem Text: decreased mobility contributes to chronic constipation. Plan/VTE VTE Prophylaxis Ordered?: Yes VS, I&O, 24H, Fishbone Vital Signs/I&O Vital Signs Date Time Temp Pulse Resp B/P (MAP) Pulse Ox O2 Delivery O2 Flow Rate FiO2 11/01/19 06:00 98.9 85 18 97/61 (73) 93 Room Air I&O- Last 24 Hours up to 6 AM 11/01/19 05:59 Intake Total 280 ml Output Total 1025 ml Balance -745 ml Laboratory Data 24H LABS Laboratory Tests 2 10/31/19 11:15: Bedside Glucose (Misc Panel) 102 10/31/19 16:35: Bedside Glucose (Misc Panel) 134H 10/31/19 20:21: Bedside Glucose (Misc Panel) 117H 11/01/19 07:04: Bedside Glucose (Misc Panel) 89 11/01/19 08:22: CBC/BMP Microbiology Microbiology 10/30/19 Urine Culture - Preliminary, Resulted Staphylococcus Aureus 10/30/19 Blood Culture - Preliminary, Resulted No growth after 24 hours . All specim... 10/30/19 Blood Culture - Preliminary, Resulted No growth after 24 hours . All specim... 10/30/19 Respiratory Virus Panel (PCR) ([facility]) - Final, Complete DAVION MCKEON PA-C Nov 01, 2019 08:43
[2019-11-01] MEDS: DOCUSATE SODIUM 100 MG CAP PO SCH ×2 (08:48→20:01)
[2019-11-01 08:50] LABS: BASO % 0.2 % (0.0-1.0); EOS # 0.4 10^3/uL (0.0-0.5); EOS % 3.8 % (0.0-3.0); HEMATOCRIT 39.1 % (36.0-47.0); HEMOGLOBIN 12.2 g/dl (12.0-15.5); LYMPH # 2.9 10^3/uL (1.5-5.0); LYMPH % 27.2 % (24.0-44.0); MEAN CORPUSCULAR HEMOGLOBIN 26.9 pg (27.0-33.0); MEAN CORPUSCULAR HGB CONC 31.2 g/dl (32.0-36.5); MEAN CORPUSCULAR VOLUME 86.1 fl (80.0-96.0); MONO # 0.9 10^3/uL (0.0-0.8); MONO % 8.5 % (0.0-5.0); NEUTROPHILS # 6.3 10^3/uL (1.5-8.5); NEUTROPHILS % 59.9 % (36.0-66.0); PLATELET COUNT, AUTOMATED 219 10^3/uL (150-450); RED BLOOD COUNT 4.54 10^6/uL (4.00-5.40); WHITE BLOOD COUNT 10.5 10^3/uL (4.0-10.0)
[2019-11-01] MEDS: BACLOFEN 10 MG TAB PO SCH ×2 (08:51→20:01)
[2019-11-01] MEDS: MIRALAX *UNIT DOSE* 17GM PACKET PO SCH (08:52)
[2019-11-01] MEDS: LORATADINE 10 MG TAB PO SCH (08:52)
[2019-11-01] MEDS: PARoxetine 25 MG CR TAB (PAXIL CR) PO SCH (08:52)
[2019-11-01] MEDS: CALCIUM/VITAMIN D 500 MG TAB PO SCH (08:52)
[2019-11-01 09:15] LABS: ALBUMIN 2.2 GM/DL (3.2-5.2); ALT/SGPT 31 U/L (12-78); BILIRUBIN,TOTAL 0.2 MG/DL (0.2-1.0); BLOOD UREA NITROGEN 13 MG/DL (7-18); CALCIUM LEVEL 7.9 MG/DL (8.5-10.1); CARBON DIOXIDE LEVEL 29 MEQ/L (21-32); CHLORIDE LEVEL 111 MEQ/L (98-107); CREATININE FOR GFR 0.72 MG/DL (0.55-1.30); GLOMERULAR FILTRATION RATE > 60.0 (>51); GLUCOSE, FASTING 142 MG/DL (70-100); SODIUM LEVEL 144 MEQ/L (136-145); TOTAL PROTEIN 5.3 GM/DL (6.4-8.2)
[2019-11-01 14:00] VITALS: BP 97/49
[2019-11-01] MEDS: metFORMIN XR 500MG TAB *GLUCOPHAGE XR PO SCH (18:22)
[2019-11-01] MEDS: RIVAROXABAN 20 MG TAB (XARELTO) PO SCH (18:22)
[2019-11-01] MEDS: ATORVASTATIN 10 MG TAB PO SCH (20:01)
[2019-11-01] MEDS: SENNA 8.6 MG TAB (SENOKOT) PO SCH (20:01)
[2019-11-01] MEDS ORDERED: VITAMIN D 50,000 UNITS CAPSULE (ERGOCALCIFEROL 1.25MG) PO SCH (21:00)
[2019-11-01 22:00] VITALS: BP 107/69
[2019-11-02 06:00] VITALS: BP 117/69
[2019-11-02] MEDS: cefTRIAXone SOD 1 GM in D5W MINI-BAG PLUS 50 ML IV SCH (06:37)
[2019-11-02 06:42] LABS: BASO % 0.3 % (0.0-1.0); EOS # 0.5 10^3/uL (0.0-0.5); EOS % 4.6 % (0.0-3.0); HEMATOCRIT 35.6 % (36.0-47.0); HEMOGLOBIN 11.1 g/dl (12.0-15.5); LYMPH # 2.9 10^3/uL (1.5-5.0); LYMPH % 29.2 % (24.0-44.0); MEAN CORPUSCULAR HEMOGLOBIN 26.7 pg (27.0-33.0); MEAN CORPUSCULAR HGB CONC 31.2 g/dl (32.0-36.5); MEAN CORPUSCULAR VOLUME 85.6 fl (80.0-96.0); MONO # 0.9 10^3/uL (0.0-0.8); MONO % 9.4 % (0.0-5.0); NEUTROPHILS # 5.6 10^3/uL (1.5-8.5); NEUTROPHILS % 56.2 % (36.0-66.0); PLATELET COUNT, AUTOMATED 229 10^3/uL (150-450); RED BLOOD COUNT 4.16 10^6/uL (4.00-5.40)
[2019-11-02 07:13] LABS: ALBUMIN 2.2 GM/DL (3.2-5.2); ALT/SGPT 32 U/L (12-78); BILIRUBIN,TOTAL 0.3 MG/DL (0.2-1.0); BLOOD UREA NITROGEN 11 MG/DL (7-18); CALCIUM LEVEL 8.2 MG/DL (8.5-10.1); CARBON DIOXIDE LEVEL 29 MEQ/L (21-32); CHLORIDE LEVEL 111 MEQ/L (98-107); CREATININE FOR GFR 0.64 MG/DL (0.55-1.30); GLOMERULAR FILTRATION RATE > 60.0 (>51); GLUCOSE, FASTING 90 MG/DL (70-100); SODIUM LEVEL 144 MEQ/L (136-145); TOTAL PROTEIN 5.3 GM/DL (6.4-8.2)
[2019-11-02] MEDS: CALCIUM/VITAMIN D 500 MG TAB PO SCH (09:33)
[2019-11-02] MEDS: BACLOFEN 10 MG TAB PO SCH ×2 (09:33→20:24)
[2019-11-02] MEDS: MIRALAX *UNIT DOSE* 17GM PACKET PO SCH (09:33)
[2019-11-02] MEDS: DOCUSATE SODIUM 100 MG CAP PO SCH ×2 (09:33→20:16)
[2019-11-02] MEDS: PARoxetine 25 MG CR TAB (PAXIL CR) PO SCH (09:34)
[2019-11-02] MEDS: LORATADINE 10 MG TAB PO SCH (09:34)
--- NOTE | 2019-11-02 13:14 | IPNPDOC ---
Subjective Date Seen The patient was seen on 11/02/19. Subjective Chief Complaint/HPI no complaints today, alert, pleasant Constitutional: Denies: Chills ENT: Denies: Head Aches Skin: Denies: Rash Pulmonary: Denies: Dyspnea Cardiovascular: Denies: Chest Pain Gastrointestinal: Denies: Nausea, Abdominal Pain Hematologic: Denies: Bruising, Petecchia Neurological: Denies: Change in speech Psych: Reports: Mood Normal Objective Physical Examination General Exam: Positive: Alert, No Acute Distress Eye Exam: Positive: Sclera icteric ENT Exam: Positive: Mucous membr. moist/pink Neck Exam: Positive: Supple; Negative: JVD Chest Exam: Positive: Clear to auscultation, Normal air movement Heart Exam: Positive: Rate Normal, Regular Rhythm, Normal S1, Normal S2; Negative: Murmurs, Rubs Abdomen Exam: Positive: Normal bowel sounds, Soft, Tenderness; Negative: Hepatospenomegaly, Mass, Hernia, Other Extremity Exam: Negative: Edema Skin Exam: Positive: Nl turgor and temperature; Negative: Rash, Breakdown Psych Exam: Positive: Mood NL; Negative: Mental status NL, Oriented x 3 Assessment /Plan Problems (1) Sepsis Problem Text: 11/01 Urine with S aureus is presumptively acquired due to blood borne seeding of kidneys so continue rocephin IV for this MSSA. Echo ordered, and plan to request ID consult on Monday. Trial of catheter removal was not successful overnight so Madden back in for now. Will repeat trial of voiding tomorrow. 11/01/2019 urine culture this morning with prelim results of staph aureus, await final result. She was changed yest from imipenem/vanco to rocephin, clinically appears stable. Will cont to monitor pressures, consider additional fluid bolus is pressure remains low, requested this be rechecked. 10/31/2019 blood cx pending. patient received multiple IVF bolus overnight. On empiric tx with Imipenem and Vancomycin. Most likely cause is colitis/ileus secondary to constipation/impaction. (2) Chronic constipation Status: Chronic Problem Text: bowel meds ordered. (3) Fever of unknown origin Status: Acute Response to Treatment: Improving (4) H/O deep venous thrombosis Status: Chronic Problem Text: Continue home dose of Xarelto (5) Severe intellectual disability Status: Chronic Problem Text: resident of [facility] (6) Spastic cerebral palsy Status: Chronic Problem Text: decreased mobility contributes to chronic constipation. Plan/VTE VTE Prophylaxis Ordered?: Yes VS, I&O, 24H, Fishbone Vital Signs/I&O Vital Signs Date Time Temp Pulse Resp B/P (MAP) Pulse Ox O2 Delivery O2 Flow Rate FiO2 11/02/19 09:34 98 136/84 11/02/19 06:00 97.5 18 97 Room Air I&O- Last 24 Hours up to 6 AM 11/02/19 05:59 Intake Total 800 ml Output Total 500 ml Balance 300 ml Laboratory Data 24H LABS Laboratory Tests 2 11/01/19 17:36: Bedside Glucose (Misc Panel) 78 11/01/19 20:15: Bedside Glucose (Misc Panel) 147H 11/02/19 06:10: Immature Granulocyte % (Auto) 0.3, Neutrophils (%) (Auto) 56.2, Lymphocytes (%) (Auto) 29.2, Monocytes (%) (Auto) 9.4H, Eosinophils (%) (Auto) 4.6H, Basophils (%) (Auto) 0.3, Neutrophils # (Auto) 5.6, Lymphocytes # (Auto) 2.9, Monocytes # (Auto) 0.9H, Eosinophils # (Auto) 0.5, Basophils # (Auto) 0.0, Nucleated Red Blood Cells % (auto) 0.0, Anion Gap 4L, Glomerular Filtration Rate > 60.0, Calcium Level 8.2L, Total Bilirubin 0.3, Aspartate Amino Transf (AST/SGOT) 32, Alanine Aminotransferase (ALT/SGPT) 32, Alkaline Phosphatase 95, Total Protein 5.3L, Albumin 2.2L, Albumin/Globulin Ratio 0.71L 11/02/19 11:53: Bedside Glucose (Misc Panel) 95 CBC/BMP Laboratory Tests 11/02/19 06:10 Microbiology Microbiology 10/30/19 Urine Culture - Final, Complete Staphylococcus Aureus 10/30/19 Blood Culture - Preliminary, Resulted No Growth after 48 hours. All Specime... 10/30/19 Blood Culture - Preliminary, Resulted No Growth after 48 hours. All Specime... 10/30/19 Respiratory Virus Panel (PCR) ([facility]) - Final, Complete Eddie Hudson MD Nov 02, 2019 13:14
[2019-11-02 14:00] VITALS: BP 127/63
[2019-11-02] MEDS: RIVAROXABAN 20 MG TAB (XARELTO) PO SCH (17:45)
[2019-11-02] MEDS: metFORMIN XR 500MG TAB *GLUCOPHAGE XR PO SCH (17:45)
[2019-11-02] MEDS: SENNA 8.6 MG TAB (SENOKOT) PO SCH (20:16)
[2019-11-02] MEDS: ATORVASTATIN 10 MG TAB PO SCH (20:24)
[2019-11-02 22:00] VITALS: BP 96/58
[2019-11-03] MEDS: cefTRIAXone SOD 1 GM in D5W MINI-BAG PLUS 50 ML IV SCH (05:51)
[2019-11-03 06:00] VITALS: BP 119/75
[2019-11-03] MEDS: BACLOFEN 10 MG TAB PO SCH ×2 (08:23→20:06)
[2019-11-03] MEDS: PARoxetine 25 MG CR TAB (PAXIL CR) PO SCH (08:23)
[2019-11-03] MEDS: MIRALAX *UNIT DOSE* 17GM PACKET PO SCH (08:23)
[2019-11-03] MEDS: CALCIUM/VITAMIN D 500 MG TAB PO SCH (08:23)
[2019-11-03] MEDS: DOCUSATE SODIUM 100 MG CAP PO SCH ×2 (08:23→20:06)
[2019-11-03] MEDS: LORATADINE 10 MG TAB PO SCH (08:23)
--- NOTE | 2019-11-03 12:23 | IPNPDOC ---
Subjective Date Seen The patient was seen on 11/03/19. Subjective Chief Complaint/HPI no complaints, looks comfortable. General: Reports: ROS Unobtainable Objective Physical Examination General Exam: Positive: No Acute Distress Eye Exam: Positive: Sclera icteric ENT Exam: Positive: Mucous membr. moist/pink Neck Exam: Positive: Supple; Negative: JVD Chest Exam: Positive: Clear to auscultation, Normal air movement Heart Exam: Positive: Rate Normal, Regular Rhythm, Normal S1, Normal S2; Negative: Murmurs, Rubs Abdomen Exam: Positive: Normal bowel sounds, Soft, Tenderness; Negative: Hepatospenomegaly, Mass, Hernia, Other Extremity Exam: Negative: Edema Skin Exam: Positive: Nl turgor and temperature; Negative: Rash, Breakdown Psych Exam: Positive: Mood NL; Negative: Mental status NL, Oriented x 3 Assessment /Plan Problems (1) Sepsis Problem Text: 11/02. stable, improving. reattempt trial of voiding. 11/01 Urine with S aureus is presumptively acquired due to blood borne seeding of kidneys so continue rocephin IV for this MSSA. Echo ordered, and plan to request ID consult on Monday. Trial of catheter removal was not successful overnight so Madden back in for now. Will repeat trial of voiding tomorrow. 11/01/2019 urine culture this morning with prelim results of staph aureus, await final result. She was changed yest from imipenem/vanco to rocephin, clinically appears stable. Will cont to monitor pressures, consider additional fluid bolus is pressure remains low, requested this be rechecked. 10/31/2019 blood cx pending. patient received multiple IVF bolus overnight. On empiric tx with Imipenem and Vancomycin. Most likely cause is colitis/ileus secondary to constipation/impaction. (2) Chronic constipation Status: Chronic Problem Text: bowel meds ordered. (3) Fever of unknown origin Status: Resolved Response to Treatment: Improving (4) H/O deep venous thrombosis Status: Chronic Problem Text: Continue home dose of Xarelto (5) Severe intellectual disability Status: Chronic Problem Text: resident of [facility] (6) Spastic cerebral palsy Status: Chronic Problem Text: decreased mobility contributes to chronic constipation. Plan/VTE VTE Prophylaxis Ordered?: Yes VS, I&O, 24H, Fishbone Vital Signs/I&O Vital Signs Date Time Temp Pulse Resp B/P (MAP) Pulse Ox O2 Delivery O2 Flow Rate FiO2 11/03/19 08:24 92 138/81 11/03/19 06:00 97.6 18 96 11/02/19 06:00 Room Air I&O- Last 24 Hours up to 6 AM 11/03/19 06:00 Intake Total 700 ml Output Total 1200 ml Balance -500 ml Laboratory Data 24H LABS Laboratory Tests 2 11/02/19 16:57: Bedside Glucose (Misc Panel) 109H Microbiology Microbiology 10/30/19 Urine Culture - Final, Complete Staphylococcus Aureus 10/30/19 Blood Culture - Preliminary, Resulted No Growth after 72 hours. All specime... 10/30/19 Blood Culture - Preliminary, Resulted No Growth after 72 hours. All specime... 10/30/19 Respiratory Virus Panel (PCR) ([facility]) - Final, Complete Eddie Hudson MD Nov 03, 2019 12:23
[2019-11-03 14:00] VITALS: BP 116/74
--- NOTE | 2019-11-03 14:13 | ECHO ---
DATE OF PROCEDURE: 11/02/2019 DATE OF : 1960 AGE: 59 REFERRING PROVIDER: Dr. Eddie Hudson PATIENT LOCATION: Room 4226 REASON FOR THE STUDY: Sepsis. 2-D MEASUREMENTS: IVS: 0.7 cm LV: 3.3 cm LVPW: 0.7 cm LA: 3.2 cm Aorta: 2.9 cm DOPPLER MEASUREMENTS: Peak velocity across the aortic valve: 1.4 m/sec Peak velocity across the LVOT: 1.2 m/sec Mitral E: 0.57, Mitral A: 0.7 with a ratio of 0.7 Maximum tricuspid valve velocity: 2.0 m/sec 2-D COMMENTS: 1. Normal left ventricular size, wall thickness, and normal global left ventricular systolic function. The estimated ventricular systolic ejection fraction is 55-60%. 2. Normal left atrium. Normal right atrium and right ventricle. 3. The atrial septum appeared to be normal without evidence of defect or shunt. 4. Normal aortic root. 5. No pericardial effusion seen. 6. Mildly calcified aortic valve with normal leaflet excursion. Mildly calcified mitral annulus with normal anterior mitral valve leaflet motion. Normal tricuspid valve and pulmonic valve. The proximal pulmonary artery branches were not well visualized. 7. The inferior vena cava was not visualized. DOPPLER: It detects mild mitral regurgitation and trace tricuspid regurgitation. The calculated pulmonary artery systolic pressure was normal. Abnormal relaxation pattern was noted across the mitral valve leaflets as well as the mitral valve annulus consistent with features of grade 1 left ventricular diastolic dysfunction. IMPRESSION: 1. Normal global left ventricular systolic function. There are some features of left ventricular diastolic dysfunction manifested by abnormal relaxation, grade 1. 2. Aortic valve sclerosis without stenosis or aortic regurgitation. 3. Mitral annulus calcification with mild mitral regurgitation. 4. Trace tricuspid regurgitation with a normal calculated pulmonary artery systolic pressure. Edited: 11/03/2019 1415 [facility]
[2019-11-03] MEDS: metFORMIN XR 500MG TAB *GLUCOPHAGE XR PO SCH (17:14)
[2019-11-03] MEDS: RIVAROXABAN 20 MG TAB (XARELTO) PO SCH (17:14)
[2019-11-03] MEDS: SENNA 8.6 MG TAB (SENOKOT) PO SCH (20:06)
[2019-11-03] MEDS: ATORVASTATIN 10 MG TAB PO SCH (20:06)
[2019-11-03 22:00] VITALS: BP 126/61
[2019-11-04] MEDS: cefTRIAXone SOD 1 GM in D5W MINI-BAG PLUS 50 ML IV SCH (05:42)
[2019-11-04 06:00] VITALS: BP 146/70
[2019-11-04] MEDS: MIRALAX *UNIT DOSE* 17GM PACKET PO SCH (08:37)
[2019-11-04 08:38] VITALS: BP 121/79
[2019-11-04] MEDS: LORATADINE 10 MG TAB PO SCH (08:38)
[2019-11-04] MEDS: DOCUSATE SODIUM 100 MG CAP PO SCH ×3 (08:38→21:05)
[2019-11-04] MEDS: CALCIUM/VITAMIN D 500 MG TAB PO SCH (08:39)
[2019-11-04] MEDS: PARoxetine 25 MG CR TAB (PAXIL CR) PO SCH (08:39)
[2019-11-04] MEDS: BACLOFEN 10 MG TAB PO SCH ×2 (08:39→21:05)
--- NOTE | 2019-11-04 10:49 | IPNPDOC ---
Subjective Date Seen The patient was seen on 11/04/19. Subjective Chief Complaint/HPI Nursing without new concerns. General: Reports: ROS Unobtainable Objective Physical Examination General Exam: Positive: Alert, No Acute Distress Neck Exam: Positive: Supple; Negative: JVD Chest Exam: Positive: Clear to auscultation, Normal air movement Heart Exam: Positive: Rate Normal, Regular Rhythm, Normal S1, Normal S2; Negative: Murmurs, Rubs Abdomen Exam: Positive: Normal bowel sounds, Soft; Negative: Tenderness, Hepatospenomegaly, Mass, Hernia, Other Extremity Exam: Negative: Edema Skin Exam: Positive: Nl turgor and temperature; Negative: Rash, Breakdown Psych Exam: Positive: Mood NL; Negative: Mental status NL, Oriented x 3 Assessment /Plan Problems (1) Sepsis Problem Text: 11/03 WBC, normalized, pt moving BMs. urine culture + MSSA, Neg blood culture x2, Waqar consulted for Abx recommendation, then will plan for DC. Echo Neg. 11/02. stable, improving. reattempt trial of voiding. 11/01 Urine with S aureus is presumptively acquired due to blood borne seeding of kidneys so continue rocephin IV for this MSSA. Echo ordered, and plan to request ID consult on Monday. Trial of catheter removal was not successful overnight so Madden back in for now. Will repeat trial of voiding tomorrow. 11/01/2019 urine culture this morning with prelim results of staph aureus, await final result. She was changed yest from imipenem/vanco to rocephin, clinically appears stable. Will cont to monitor pressures, consider additional fluid bolus is pressure remains low, requested this be rechecked. 10/31/2019 blood cx pending. patient received multiple IVF bolus overnight. On empiric tx with Imipenem and Vancomycin. Most likely cause is colitis/ileus secondary to constipation/impaction. (2) Chronic constipation Status: Chronic Problem Text: bowel meds ordered. (3) Fever of unknown origin Status: Resolved Response to Treatment: Improving (4) H/O deep venous thrombosis Status: Chronic Problem Text: Continue home dose of Xarelto (5) Severe intellectual disability Status: Chronic Problem Text: resident of [facility] (6) Spastic cerebral palsy Status: Chronic Problem Text: decreased mobility contributes to chronic constipation. Plan/VTE VTE Prophylaxis Ordered?: Yes VS, I&O, 24H, Fishbone Vital Signs/I&O Vital Signs Date Time Temp Pulse Resp B/P (MAP) Pulse Ox O2 Delivery O2 Flow Rate FiO2 11/04/19 08:38 75 121/79 11/04/19 06:00 97.4 18 93 11/02/19 06:00 Room Air I&O- Last 24 Hours up to 6 AM 11/04/19 05:59 Intake Total 200 ml Output Total 450 ml Balance -250 ml Laboratory Data Microbiology Microbiology 10/30/19 Urine Culture - Final, Complete Staphylococcus Aureus 10/30/19 Blood Culture - Preliminary, Resulted No Growth after 72 hours. All specime... 10/30/19 Blood Culture - Preliminary, Resulted No Growth after 72 hours. All specime... 10/30/19 Respiratory Virus Panel (PCR) ([facility]) - Final, Complete DAVION MCKEON PA-C Nov 04, 2019 10:49
[2019-11-04 14:00] VITALS: BP 121/75
[2019-11-04] MEDS: RIVAROXABAN 20 MG TAB (XARELTO) PO SCH (17:45)
[2019-11-04] MEDS: metFORMIN XR 500MG TAB *GLUCOPHAGE XR PO SCH (17:45)
[2019-11-04] MEDS: ATORVASTATIN 10 MG TAB PO SCH (21:04)
[2019-11-04] MEDS: SENNA 8.6 MG TAB (SENOKOT) PO SCH (21:05)
[2019-11-04 22:00] VITALS: BP 124/75
[2019-11-04] MEDS: CEPHALEXIN 500 MG CAP PO SCH (23:47)
[2019-11-05] MEDS: CEPHALEXIN 500 MG CAP PO SCH ×2 (05:42→11:51)
[2019-11-05 06:00] VITALS: BP 131/88
[2019-11-05] MEDS: MIRALAX *UNIT DOSE* 17GM PACKET PO SCH (08:40)
[2019-11-05] MEDS: PARoxetine 25 MG CR TAB (PAXIL CR) PO SCH (08:55)
[2019-11-05] MEDS: BACLOFEN 10 MG TAB PO SCH (08:55)
[2019-11-05] MEDS: LORATADINE 10 MG TAB PO SCH (08:55)
[2019-11-05] MEDS: CALCIUM/VITAMIN D 500 MG TAB PO SCH (08:55)
[2019-11-05] MEDS: DOCUSATE SODIUM 100 MG CAP PO SCH (08:55)
[2019-11-05] MEDS ORDERED: CEPH500C PO (09:51)
--- NOTE | 2019-11-05 13:56 | CR ---
DATE OF CONSULTATION: 11/04/2019 I was asked to consult by Dr. Coyle for evaluation of fever and antibiotic management. History of present illness is obtained from the chart. Mrs. Connell is a 59-year-old female from [facility]) , who was brought in by the staff because she had a fever of 103.1. She was screaming in pain and they were not able to figure out what was her problem. The patient had a fever on admission. She had no lactic acidosis. Her white count was elevated. Her urinalysis had only 5 white cells. Urine culture eventually grew methicillin sensitive Staphylococcus aureus (MSSA). Blood cultures were negative. The patient had one episode of vomiting at the nursing home, but did not have any recurrent episodes. Today she seems very comfortable. She has been afebrile for 4 days. She has been on ceftriaxone, currently day number day 5. MEDICATIONS: - Dulcolax as needed - amlodipine 2.5 mg daily - calcium with vitamin D 500 mg daily - loratadine 10 mg daily - Paxil 25 mg daily - MiraLax 1 packet daily - atorvastatin 10 mg by mouth at night - baclofen 10 mg by mouth twice a day - Colace 100 mg by mouth twice a day, the patient has refused ALLERGIES: CHLORPROMAZINE, MEPERIDINE, PROMETHAZINE. PAST MEDICAL HISTORY: Significant for cerebral palsy, history of a deep vein thrombosis (DVT) on Xarelto, hepatosteatosis, glucose intolerance, hypothyroidism and eczema. PAST SURGICAL HISTORY: No documented surgery. SOCIAL HISTORY: She does not smoke or drink. She lives at [facility]. LABORATORY DATA: White count is 10, hemoglobin 11.1, hematocrit 35.6, platelets 229, 56% neutrophils, 29% lymphocytes, 10% monocytes. Sodium 144, potassium 4, chloride 111, bicarbonate 29, BUN 11, creatinine 0.64, glucose 90, calcium 8.2, lactic acid 1.2. Blood cultures two sets on 10/29 were no growth. Respiratory panel was negative. Urine culture had MSSA 80,000. Urinalysis has only 5 white cells, 4 red cells, negative bacteria. CT abdomen and pelvis no acute surgical or inflammatory process and no explanation for the fever, large volume of colonic stool suggesting the possibility of constipation. CT chest showed no acute disease. Chest x-ray showed some circumferential edema involving the distal esophagus, which could be seen in reflux esophagitis. PHYSICAL EXAMINATION: Temperature is 98.5, pulse 75, respirations 17, blood pressure 121/75, oxygen sat 97% on room air. Heart: Normal S1, S2. No murmurs appreciated. Lungs are clear. No wheezes, rales, or rhonchi. Abdomen is soft, nontender. No hepatosplenomegaly. Back: No costovertebral angle tenderness. Extremities: No clubbing, cyanosis or edema. No calf tenderness. No rashes. Neurologic exam could not be obtained. The patient is sitting in a position, did not respond to any of my questions. IMPRESSION: This is a 59-year-old female who presented with a fever up to 103, leukocytosis. Urinalysis was not very impressive with only 5 white cells. Urine culture had only 80,000, methicillin sensitive Staphylococcus aureus (MSSA). The patient has improved after 24 hours of antibiotics currently, currently day #5 of IV ceftriaxone. She has also received one dose of meropenem on admission. The patient also could have had a viral infection with nausea versus aspiration pneumonitis. Her influenza A and B were negative. PLAN: At this point, I would suggest finishing her treatment for fever from urinary source as this was the only source of infection. I would suggest discontinuing IV antibiotics, switching her to Keflex 500 mg p.o. q.i.d. to finish a total 7-day course, which would be 48 hours of cephalexin total. The patient could be discharged home tomorrow.
--- NOTE | 2019-11-05 21:56 | DSES ---
DATE OF ADMISSION: 10/31/2019 DATE OF DISCHARGE: 11/05/2019 ATTENDING TODAY: Dr. Lucius Coyle PRIMARY CARE PROVIDER (PCP): Dr. Benny Godoy HISTORY; This is a 59-year-old female patient, resident at [facility] ([facility]), who presented to [facility] emergency room with a fever of 102.2 and patient had been refusing to take medication, screaming out in pain. They were unsure what had been bothering her. She was admitted to the hospital for sepsis, etiology of which was unclear at time of presentation. She underwent blood cultures, urine cultures. Blood cultures were negative. Respiratory panel was negative. Urine culture grew out Staphylococcus (staph) aureus. She underwent CT scan of the abdomen and pelvis, which was large volume of colonic stools, suggesting colonic impaction with fecal retention. She also underwent CT scan of the chest on presentation to the emergency room, which suggested circumferential mural edema involving the distal esophagus, which can be seen with reflux esophagitis. Patient was admitted to the hospital with aggressive bowel care. She was initially started on IV ceftriaxone; this has been changed over to cephalexin with the recommendation of Dr. Zavaleta. I currently do not have her note available, although this will need further review when patient presents for her outpatient followup. Note: Patient had an echocardiogram done while inpatient revealing normal ventricular size, thickness, normal global left ventricular systolic function with an ejection fraction (EF) of 55-60%. Some features of left ventricular diastolic dysfunction manifested by abnormal relaxation, grade 1. Aortic valve sclerosis without stenosis or regurgitation. Mitral annulus calcification with mild mitral regurgitation. Trace tricuspid regurgitation with normal calculated pulmonary artery systolic pressure. DISCHARGE DIAGNOSES: Sepsis with abdominal pain. Fecal impaction with chronic constipation. Severe intellectual disability. Urinary tract infection secondary to Staphylococcus aureus. DISCHARGE MEDICATIONS: Include; - Keflex 500 mg by mouth every 6 hours times 10 days - amlodipine 2.5 mg daily - atorvastatin 10 mg by mouth nightly - baclofen 10 mg by mouth twice a day - calcium with D one tablet daily - cimetidine 200 mg nightly - diazepam 5 mg or 10 mg daily as needed for anxiety - Colace 100 mg twice daily - vitamin D2 50,000 every other week - loratadine 10 mg daily - metformin 500 mg before bed - paroxetine 25 mg daily - MiraLAX daily as needed for constipation - Xarelto 20 mg daily DISCHARGE PLAN: Will be to followup with Dr. Godoy in 1 week. Activity is to be as tolerated. Diet is consistent carbohydrate.
== END 2019-11-05 12:15 | disposition home or self-care (01) | DRG 872 ==
LOC: M ED 16:17 → EDBD 16:17 → M ED INP 10-31 02:50 → ENRESERVDT 10-31 03:40 → ENRESERVTM 10-31 03:40 → M MSPAV 10-31 04:09
PROVIDERS: ADMIT Internal Medicine; ATTEND Family Medicine
DX: A41.9 Sepsis, unspecified organism (principal); I82.401 Acute embolism and thrombosis of unspecified deep veins of right lower extremity; G80.1 Spastic diplegic cerebral palsy; F72 Severe intellectual disabilities; N39.0 Urinary tract infection, site not specified; K76.0 Fatty (change of) liver, not elsewhere classified; E74.39 Other disorders of intestinal carbohydrate absorption; E03.9 Hypothyroidism, unspecified; R50.9 Fever, unspecified; Z79.01 Long term (current) use of anticoagulants; Z79.899 Other long term (current) drug therapy; Z88.6 Allergy status to analgesic agent; Z88.8 Allergy status to other drugs, medicaments and biological substances; Z91.018 Allergy to other foods; K56.41 Fecal impaction; B95.61 Methicillin susceptible Staphylococcus aureus infection as the cause of diseases classified elsewhere

== ENCOUNTER → 2020-02-19 | Outpatient (CLI) | payer MEDICARE, MEDICAID ==
[~2020-02-19] MED LIST changes: +AMLO2.5T3 PO; +CALC600T18 PO; +CALCCAP4 PO; +CEPH500C PO; -METF-791 PO; +METF-838 PO; +MIRA1POW3 PO; +VALI5TAB PO
[2020-02-19 13:43] LABS: BASO % 0.2 % (0.0-1.0); EOS # 0.2 10^3/uL (0.0-0.5); EOS % 2.2 % (0.0-3.0); HEMATOCRIT 42.9 % (36.0-47.0); HEMOGLOBIN 12.8 g/dl (12.0-15.5); MEAN CORPUSCULAR HEMOGLOBIN 25.9 pg (27.0-33.0); MEAN CORPUSCULAR HGB CONC 29.8 g/dl (32.0-36.5); MEAN CORPUSCULAR VOLUME 86.7 fl (80.0-96.0); MONO # 0.7 10^3/uL (0.0-0.8); MONO % 8.3 % (0.0-5.0); PLATELET COUNT, AUTOMATED 295 10^3/uL (150-450); RED BLOOD COUNT 4.95 10^6/uL (4.00-5.40)
[2020-02-19 13:51] LABS: ALBUMIN 3.3 GM/DL (3.2-5.2); ALT/SGPT 62 U/L (12-78); BILIRUBIN,TOTAL 0.5 MG/DL (0.2-1.0); BLOOD UREA NITROGEN 12 MG/DL (7-18); CALCIUM LEVEL 9.3 MG/DL (8.5-10.1); CARBON DIOXIDE LEVEL 31 MEQ/L (21-32); CHLORIDE LEVEL 105 MEQ/L (98-107); CHOLESTEROL LEVEL 117 MG/DL (<200); CREATININE FOR GFR 0.82 MG/DL (0.55-1.30); FREE T4 0.94 NG/DL (0.76-1.46); GLOMERULAR FILTRATION RATE > 60.0 (>51); GLUCOSE, FASTING 93 MG/DL (70-100); HDL CHOLESTEROL 65 MG/DL (>40); LDL CHOLESTEROL 26 MG/DL (<100); NON-HDL-C 52 MG/DL; POTASSIUM SERUM 4.3 MEQ/L (3.5-5.1); PTH INTACT 41.8 PG/ML (18.5-88.0); SODIUM LEVEL 139 MEQ/L (136-145); THYROID STIMULATING HORMONE 0.539 uIU/ML (0.358-3.740); TOTAL 25(OH) VITAMIN D 90.9 NG/ML (30.0-100.0); TRIGLYCERIDES LEVEL 132 MG/DL (<150)
[2020-02-19 14:11] LABS: HEMOGLOBIN A1c 6.2 %
== END ==
LOC: M WUC 08:41
PROVIDERS: ATTEND Family Medicine
DX: R73.01 Impaired fasting glucose (principal); E55.9 Vitamin D deficiency, unspecified; E78.2 Mixed hyperlipidemia; D72.829 Elevated white blood cell count, unspecified; Z79.899 Other long term (current) drug therapy

== ENCOUNTER → 2020-03-30 | Outpatient (CLI) | payer MEDICARE, MEDICAID ==
--- NOTE | 2020-04-20 09:35 | REPMRS ---
Patient History Patient is nulliparous.The patient states she has not had a clinical breast exam in over a year. Digital Woman Screen Mammo: April 13, 2020 - Exam #: [id number] Bilateral CC and MLO view(s) were taken. Technologist: Mandie Burden, Technologist Prior study comparison: March 28, 2019, bilateral digital woman screen mammo performed at [facility]. March 26, 2018, bilateral digital woman screen mammo performed at [facility]. FINDINGS: There are scattered fibroglandular densities. There has been no change in the appearance of the mammogram from the prior studies. There is a mild amount of scattered fibroglandular density which is fairly symmetric. There is no interval development of dominant mass, architectural distortion, or grouped microcalcification suggestive of malignancy. Report was delayed due to a protracted computer network disruption experienced by this facility. Assessment: BI-RADS/ACR category 1 mammogram. Negative Mammogram. Recommendation Routine screening mammogram of both breasts in 1 year (for women over age 40). This patient's Lifetime Breast Cancer Risk is estimated at 10.0 %. This mammogram was interpreted with the aid of an FDA-approved computer-aided dectection system. Electronically Signed By: Aurelio Sánchez MD 04/20/20 0941
== END ==
LOC: M WHC 07:34
PROVIDERS: ATTEND Family Medicine
DX: Z12.31 Encounter for screening mammogram for malignant neoplasm of breast (principal)

== ENCOUNTER 2020-04-04 17:30 | Emergency (ER) | payer MEDICARE, MEDICAID ==
[2020-04-04] MEDS ORDERED: ISOVUE-370 76% 100ML VIAL ONE (19:38)
[2020-04-04] MEDS ORDERED: CLINDAMYCIN 900 MG/50 ML PREMIX BAG ONE (20:41)
[2020-05-21 17:18] LABS: BASO % 0.3 % (0.0-1.0); EOS # 0.2 10^3/uL (0.0-0.5); EOS % 1.8 % (0.0-3.0); HEMATOCRIT 41.3 % (36.0-47.0); HEMOGLOBIN 12.8 g/dl (12.0-15.5); LYMPH % 27.3 % (24.0-44.0); MEAN CORPUSCULAR HEMOGLOBIN 26.9 pg (27.0-33.0); MEAN CORPUSCULAR VOLUME 86.9 fl (80.0-96.0); NEUTROPHILS # 6.7 10^3/uL (1.5-8.5); NEUTROPHILS % 61.2 % (36.0-66.0); PLATELET COUNT, AUTOMATED 297 10^3/uL (150-450); RED BLOOD COUNT 4.75 10^6/uL (4.00-5.40); WHITE BLOOD COUNT 10.9 10^3/uL (4.0-10.0)
[2020-05-21 18:09] LABS: ERYTHROCYTE SEDIMENTATION RATE 33 mm/hr (0-30)
[2020-06-23 20:10] LABS: C REACTIVE PROTEIN QUANTITATIV 2.56 MG/DL (0.00-0.30); CALCIUM LEVEL 9.2 MG/DL (8.5-10.1); CREATININE FOR GFR 1.11 MG/DL (0.55-1.30); GLOMERULAR FILTRATION RATE 53.7 (>51); POTASSIUM SERUM 4.4 MEQ/L (3.5-5.1)
== END 2020-04-04 21:55 | disposition home or self-care (01) ==
LOC: M ED 17:30
DX: L03.213 Periorbital cellulitis (principal); E11.9 Type 2 diabetes mellitus without complications; I10 Essential (primary) hypertension; E78.5 Hyperlipidemia, unspecified; F41.9 Anxiety disorder, unspecified; J30.9 Allergic rhinitis, unspecified; M41.9 Scoliosis, unspecified; G80.9 Cerebral palsy, unspecified; Z86.718 Personal history of other venous thrombosis and embolism; Z88.8 Allergy status to other drugs, medicaments and biological substances
CPT/HCPCS: 70481; 80048; 85025; 85652; 86140; 96374; 99284; Q9967

== ENCOUNTER → 2020-06-29 | Outpatient (CLI) | payer MEDICARE, MEDICAID ==
--- NOTE | 2020-06-29 12:40 | DEXA ---
INDICATION: M85.80 OSTEOPENIA. COMPARISON: June 25, 2018, June 19, 2013, and September 25, 2007.. TECHNIQUE: Bone density was measured using dual-energy x-ray absorptionmetry (DEXA). FINDINGS: AP SPINE L1-L4 BMD 1.137 g/cm2 Young Adult T-Score -0.5 Age Matched Z-Score 0.6. LT FEMUR, TOTAL BMD 0.962 g/cm2 Young Adult T-Score -0.4 Age Matched Z-Score 0.5. LT NECK BMD 0.915 g/cm2 Young Adult T-Score -0.9 Age Matched Z-Score 0.3. RT FEMUR, TOTAL BMD 0.965 g/cm2 Young Adult T-Score -0.3 Age Matched Z-Score 0.5. RT NECK BMD 0.941 g/cm2 Young Adult T-Score -0.7 Age Matched Z-Score 0.5. IMPRESSION: There is normal bone density of the spine. There is normal bone density of the left hip. There is normal bone density of the right hip. The density of the spine has increased 0.2 % since the initial exam on September 25, 2007. The density of the spine decreased 4.8% since most recent exam on June 25, 2018. The density of the left hip has decreased 11.3% since initial exam on September 25, 2007. The density of the left hip has increased 1.5% since most recent exam on June 25, 2018. The density of the right hip has decreased 11.0% since the initial exam on September 25, 2007. The density of the right hip has decreased 1.5% since the most recent exam on June 25, 2018. FOLLOW-UP: Recommendation for the next bone density exam: 5 years. <Electronically signed by Aurelio Sánchez > 06/29/20 1232
== END ==
LOC: M WHC 10:10
PROVIDERS: ATTEND Family Medicine
DX: M85.80 Other specified disorders of bone density and structure, unspecified site (principal); M81.0 Age-related osteoporosis without current pathological fracture

== ENCOUNTER → 2020-07-15 | Outpatient (REF) | payer MEDICARE, MEDICAID ==
[2020-07-15 15:37] LABS: BASO % 0.3 % (0.0-1.0); EOS # 0.2 10^3/uL (0.0-0.5); EOS % 2.1 % (0.0-3.0); HEMOGLOBIN 12.6 g/dl (12.0-15.5); LYMPH # 3.3 10^3/uL (1.5-5.0); LYMPH % 33.1 % (24.0-44.0); MEAN CORPUSCULAR HEMOGLOBIN 27.2 pg (27.0-33.0); MEAN CORPUSCULAR HGB CONC 30.7 g/dl (32.0-36.5); MEAN CORPUSCULAR VOLUME 88.6 fl (80.0-96.0); MONO % 9.6 % (0.0-5.0); NEUTROPHILS # 5.4 10^3/uL (1.5-8.5); NEUTROPHILS % 54.7 % (36.0-66.0); PLATELET COUNT, AUTOMATED 285 10^3/uL (150-450); RED BLOOD COUNT 4.63 10^6/uL (4.00-5.40); WHITE BLOOD COUNT 9.9 10^3/uL (4.0-10.0)
[2020-07-15 15:49] LABS: HEMOGLOBIN A1c 5.7 %
== END ==
LOC: M SFHCPLAZ 13:51
PROVIDERS: ATTEND Physician Assistant Medical
DX: D72.829 Elevated white blood cell count, unspecified (principal); R73.01 Impaired fasting glucose

== ENCOUNTER → 2021-01-01 | Outpatient (CLI) | payer MEDICARE, MEDICAID ==
[2021-01-01 11:10] LABS: BASO % 0.4 % (0.0-1.0); EOS # 0.2 10^3/uL (0.0-0.5); EOS % 2.3 % (0.0-3.0); HEMATOCRIT 42.8 % (36.0-47.0); LYMPH # 2.4 10^3/uL (1.5-5.0); LYMPH % 33.4 % (24.0-44.0); MEAN CORPUSCULAR HEMOGLOBIN 27.1 pg (27.0-33.0); MEAN CORPUSCULAR HGB CONC 30.4 g/dl (32.0-36.5); MEAN CORPUSCULAR VOLUME 89.2 fl (80.0-96.0); MONO # 0.7 10^3/uL (0.0-0.8); NEUTROPHILS # 3.9 10^3/uL (1.5-8.5); NEUTROPHILS % 53.6 % (36.0-66.0); PLATELET COUNT, AUTOMATED 268 10^3/uL (150-450); WHITE BLOOD COUNT 7.3 10^3/uL (4.0-10.0)
[2021-01-01 11:40] LABS: HEMOGLOBIN A1c 5.5 %
[2021-01-01 11:44] LABS: C REACTIVE PROTEIN QUANTITATIV < 0.30 MG/DL (0.00-0.30); CHOLESTEROL LEVEL 122 MG/DL (<200); CHOLESTEROL RISK RATIO 1.506 (<5); CPK CREATINE PHOSPHOKINASE 63 U/L (26-192); HDL CHOLESTEROL 81 MG/DL (>40); LDL CHOLESTEROL 21 MG/DL (<100); NON-HDL-C 41 MG/DL; TRIGLYCERIDES LEVEL 100 MG/DL (<150)
== END ==
LOC: M WUC 08:37
PROVIDERS: ATTEND Family Medicine
DX: R73.01 Impaired fasting glucose (principal); D72.829 Elevated white blood cell count, unspecified; E78.2 Mixed hyperlipidemia

== ENCOUNTER → 2021-01-07 | Outpatient (REF) | payer MEDICARE, MEDICAID | LOC: M LAB REF 11:43 | PROVIDERS: ATTEND Family Medicine | DX: R35.0 Frequency of micturition (principal) ==

== ENCOUNTER → 2021-04-29 | Outpatient (CLI) | payer MEDICARE, MEDICAID ==
[~2021-04-29] MED LIST changes: +ERGO500029 PO; -VITA50005 PO
--- NOTE | 2021-05-07 14:51 | REP ---
INDICATION: VALERIA SCR MAMMO/Z12.31. COMPARISON: Multiple TECHNIQUE: Bilateral digital screening mammography was attempted, however, according to the note in the patient's synapse power jacket which was entered by the performing technologist, the patient would not allow for completion of the exam. There is no right MLO view.. By history, the patient has no complaints of a palpable breast abnormality or other significant breast complaints. No DBT images were obtained further limiting the exam. FINDINGS: There are no eris soft tissue densities or spiculated masses seen on the bilateral CC views. Benign calcifications are present and unchanged. The bilateral CC views show no significant change. There is no change in appearance of the left MLO view. There are no eris soft tissue densities or spiculated masses. Stable benign calcifications are identified. The Volpara volumetric breast density pattern is b. IMPRESSION: BIRADS/ACR category 0 mammogram. The examination is incomplete. Additional imaging warranted as described above. Malignancy cannot be ruled out. This patient's Tyrer-Cuzick lifetime breast cancer risk assessment score is 9.8%. This mammogram was interpreted with the aid of an FDA-approved computer-aided detection system. The patient states she had a clinical breast exam in over a year. The patient letter being requested is M0. RECOMMENDATION: As above <Electronically signed by Jose Luis Sin > 05/07/21 [id number]
== END ==
LOC: M WHC 13:25
PROVIDERS: ATTEND Nurse Practitioner Women's Health
DX: R92.2 Inconclusive mammogram (principal)

== ENCOUNTER → 2021-05-06 | Outpatient (CLI) | payer MEDICARE, MEDICAID | LOC: M LABSMTC 09:16 | PROVIDERS: ATTEND Pediatrics | DX: Z20.822 Contact with and (suspected) exposure to COVID-19 (principal) | CPT/HCPCS: C9803; U0003 ==

== ENCOUNTER → 2021-05-19 | Outpatient (CLI) | payer MEDICARE, MEDICAID ==
[2021-05-19 11:53] LABS: BASO % 0.4 % (0.0-1.0); EOS # 0.2 10^3/uL (0.0-0.5); HEMOGLOBIN 13.1 g/dl (12.0-15.5); LYMPH # 2.1 10^3/uL (1.5-5.0); LYMPH % 27.1 % (24.0-44.0); MEAN CORPUSCULAR HEMOGLOBIN 28.1 pg (27.0-33.0); MEAN CORPUSCULAR HGB CONC 31.2 g/dl (32.0-36.5); MEAN CORPUSCULAR VOLUME 89.9 fl (80.0-96.0); MONO # 0.6 10^3/uL (0.0-0.8); MONO % 8.1 % (2.0-8.0); NEUTROPHILS # 4.9 10^3/uL (1.5-8.5); NEUTROPHILS % 62.1 % (36.0-66.0); PLATELET COUNT, AUTOMATED 265 10^3/uL (150-450); RED BLOOD COUNT 4.67 10^6/uL (4.00-5.40); WHITE BLOOD COUNT 7.9 10^3/uL (4.0-10.0)
[2021-05-19 12:16] LABS: HEMOGLOBIN A1c 5.6 %
[2021-05-19 14:17] LABS: ALBUMIN 3.3 GM/DL (3.2-5.2); ALT/SGPT 27 U/L (12-78); BILIRUBIN,TOTAL 0.3 MG/DL (0.2-1.0); BLOOD UREA NITROGEN 11 MG/DL (7-18); CALCIUM LEVEL 9.5 MG/DL (8.5-10.1); CARBON DIOXIDE LEVEL 31 MEQ/L (21-32); CHLORIDE LEVEL 105 MEQ/L (98-107); FERRITIN 21 NG/ML (8-252); GLOMERULAR FILTRATION RATE > 60.0 (>51); GLUCOSE, FASTING 89 MG/DL (70-100); POTASSIUM SERUM 4.5 MEQ/L (3.5-5.1); SODIUM LEVEL 141 MEQ/L (136-145); TOTAL PROTEIN 6.8 GM/DL (6.4-8.2)
[2021-05-19 14:18] LABS: TOTAL 25(OH) VITAMIN D 125.5 NG/ML (30.0-100.0)
== END ==
LOC: M WUC 08:39
PROVIDERS: ATTEND Family Medicine
DX: R73.01 Impaired fasting glucose (principal); I10 Essential (primary) hypertension; E55.9 Vitamin D deficiency, unspecified; Z79.899 Other long term (current) drug therapy

== ENCOUNTER → 2021-06-16 | Outpatient (CLI) | payer MEDICARE, MEDICAID ==
--- NOTE | 2021-06-16 12:24 | REP ---
INDICATION: INCOMPLETE MAMMO R MLO. COMPARISON: 04/29/2021, 03/30/2020 as well as other prior exams. TECHNIQUE: Single right MLO view performed. Right MLO view could not be performed 04/29/2021 due to patient agitation. FINDINGS: There is limited visualization of the right axillary region due to limitations with patient positioning. No mass, architectural distortion or clustered microcalcifications are visualized. IMPRESSION: BIRADS/ACR category 1, negative mammogram. Single MLO view of the right breast completes the bilateral screening mammogram of 04/29/2021. There is no evidence of suspicious mass or clusters of microcalcifications. This mammogram was interpreted with the aid of an FDA-approved computer-aided detection system. The patient letter being requested is M 1. RECOMMENDATION: Repeat screening mammography recommended 1 year (for women over 40). <Electronically signed by Scott Keen > 06/16/21 [id number]
== END ==
LOC: M WHC 11:29
PROVIDERS: ATTEND Nurse Practitioner Women's Health
DX: R92.2 Inconclusive mammogram (principal)
CPT/HCPCS: 77065; G0279

== ENCOUNTER → 2021-06-28 | Outpatient (CLI) | payer MEDICARE, MEDICAID | LOC: M LABSMTC 10:32 | PROVIDERS: ATTEND Pathology Anatomic Pathology & Clinical Pathology | DX: Z01.812 Encounter for preprocedural laboratory examination (principal); Z20.822 Contact with and (suspected) exposure to COVID-19 ==

== ENCOUNTER → 2021-10-06 | Outpatient (CLI) | payer MEDICARE, MEDICAID ==
[~2021-10-06] MED LIST changes: +PARO25TA12 PO; -PAXI25TA13 PO
[2021-10-06 12:25] LABS: BASO % 0.2 % (0.0-1.0); EOS # 0.2 10^3/uL (0.0-0.5); EOS % 1.7 % (0.0-3.0); HEMATOCRIT 43.3 % (36.0-47.0); HEMOGLOBIN 13.3 g/dl (12.0-15.5); LYMPH # 2.6 10^3/uL (1.5-5.0); LYMPH % 27.3 % (24.0-44.0); MEAN CORPUSCULAR HEMOGLOBIN 27.1 pg (27.0-33.0); MEAN CORPUSCULAR HGB CONC 30.7 g/dl (32.0-36.5); MEAN CORPUSCULAR VOLUME 88.2 fl (80.0-96.0); MONO # 0.9 10^3/uL (0.0-0.8); MONO % 8.8 % (2.0-8.0); NEUTROPHILS # 5.9 10^3/uL (1.5-8.5); NEUTROPHILS % 61.8 % (36.0-66.0); PLATELET COUNT, AUTOMATED 287 10^3/uL (150-450); RED BLOOD COUNT 4.91 10^6/uL (4.00-5.40); WHITE BLOOD COUNT 9.6 10^3/uL (4.0-10.0)
[2021-10-06 13:07] LABS: ALBUMIN 3.4 GM/DL (3.2-5.2); ALT/SGPT 39 U/L (12-78); BILIRUBIN,TOTAL 0.2 MG/DL (0.2-1.0); BLOOD UREA NITROGEN 12 MG/DL (7-18); CALCIUM LEVEL 9.1 MG/DL (8.5-10.1); CARBON DIOXIDE LEVEL 30 MEQ/L (21-32); CHLORIDE LEVEL 105 MEQ/L (98-107); CHOLESTEROL LEVEL 111 MG/DL (<200); CHOLESTEROL RISK RATIO 1.541 (<5); CREATININE FOR GFR 0.77 MG/DL (0.55-1.30); FREE T4 0.92 NG/DL (0.76-1.46); GLOMERULAR FILTRATION RATE > 60.0 (>51); GLUCOSE, FASTING 85 MG/DL (70-100); HDL CHOLESTEROL 72 MG/DL (>40); LDL CHOLESTEROL 19 MG/DL (<100); NON-HDL-C 39 MG/DL; NT-PRO BNP 42 PG/ML (<125); POTASSIUM SERUM 4.3 MEQ/L (3.5-5.1); SODIUM LEVEL 139 MEQ/L (136-145); THYROID STIMULATING HORMONE 0.984 uIU/ML (0.358-3.740); TOTAL PROTEIN 6.8 GM/DL (6.4-8.2); TRIGLYCERIDES LEVEL 101 MG/DL (<150)
== END ==
LOC: M WUC 08:42
PROVIDERS: ATTEND Family Medicine
DX: R73.01 Impaired fasting glucose (principal); I10 Essential (primary) hypertension

== ENCOUNTER → 2022-03-03 | Outpatient (CLI) | payer MEDICARE, MEDICAID ==
[~2022-03-03] MED LIST changes: +CIME200T4 PO; -GNP200TA4 PO; +SENN-80 PO
== END ==
LOC: M LABSMTC 09:09
PROVIDERS: ATTEND Anesthesiology
DX: Z20.828 Contact with and (suspected) exposure to other viral communicable diseases (principal); Z11.59 Encounter for screening for other viral diseases

== ENCOUNTER 2022-03-08 06:51 | Day surgery (SDC) | payer MEDICARE, MEDICAID ==
[~2022-03-08] VITALS: Ht 152.4 cm; Wt 47.6 kg
[~2022-03-08 06:51] MED LIST changes: +LIDOCAINE 2% INJ 100 MG/5 ML SYRINGE As Ordered ONE; +NS 1,000 ML IV ONE; +propofoL 200 MG/20 ML VIAL As Ordered ONE
[2022-03-08 08:19] VITALS: BP 154/66
== END 2022-03-08 08:20 | disposition home or self-care (01) ==
LOC: M OPP 06:51
PROVIDERS: ATTEND Internal Medicine Gastroenterology
DX: Z12.11 Encounter for screening for malignant neoplasm of colon (principal); Z86.010 Personal history of colon polyps; Z53.8 Procedure and treatment not carried out for other reasons

== ENCOUNTER → 2022-03-22 | Outpatient (CLI) | payer MEDICARE, MEDICAID ==
[~2022-03-22] MED LIST changes: -LIDOCAINE 2% INJ 100 MG/5 ML SYRINGE As Ordered ONE; -NS 1,000 ML IV ONE; -propofoL 200 MG/20 ML VIAL As Ordered ONE
[2022-03-22 11:35] LABS: BASO % 0.3 % (0.0-1.0); EOS # 0.2 10^3/uL (0.0-0.5); EOS % 2.1 % (0.0-3.0); HEMOGLOBIN 13.1 g/dl (12.0-15.5); LYMPH # 2.9 10^3/uL (1.5-5.0); LYMPH % 29.5 % (24.0-44.0); MEAN CORPUSCULAR HEMOGLOBIN 27.6 pg (27.0-33.0); MEAN CORPUSCULAR HGB CONC 30.5 g/dl (32.0-36.5); MEAN CORPUSCULAR VOLUME 90.5 fl (80.0-96.0); MONO # 0.8 10^3/uL (0.0-0.8); MONO % 8.5 % (2.0-8.0); NEUTROPHILS # 5.7 10^3/uL (1.5-8.5); NEUTROPHILS % 59.4 % (36.0-66.0); PLATELET COUNT, AUTOMATED 270 10^3/uL (150-450); RED BLOOD COUNT 4.75 10^6/uL (4.00-5.40); WHITE BLOOD COUNT 9.7 10^3/uL (4.0-10.0)
[2022-03-22 11:56] LABS: ALBUMIN 3.4 GM/DL (3.2-5.2); BLOOD UREA NITROGEN 15 MG/DL (7-18); CALCIUM LEVEL 9.1 MG/DL (8.8-10.2); CARBON DIOXIDE LEVEL 32 MEQ/L (21-32); CHLORIDE LEVEL 105 MEQ/L (98-107); CREATININE FOR GFR 0.72 MG/DL (0.55-1.30); GLOMERULAR FILTRATION RATE > 60.0 (>45); GLUCOSE, FASTING 72 MG/DL (70-100); PHOSPHORUS LEVEL 3.6 MG/DL (2.5-4.9); POTASSIUM SERUM 4.5 MEQ/L (3.5-5.1); SODIUM LEVEL 140 MEQ/L (136-145)
[2022-03-22 11:57] LABS: HEMOGLOBIN A1c 5.6 %
[2022-03-22 12:54] LABS: PTH INTACT 32.1 PG/ML (18.5-88.0); TOTAL 25(OH) VITAMIN D 120.7 NG/ML (30.0-100.0)
[2022-03-22 12:55] LABS: VITAMIN B12 LEVEL 704 PG/ML (247-911)
== END ==
LOC: M WUC 08:24
PROVIDERS: ATTEND Family Medicine
DX: E55.9 Vitamin D deficiency, unspecified (principal); R73.01 Impaired fasting glucose; I10 Essential (primary) hypertension; Z79.899 Other long term (current) drug therapy

== ENCOUNTER → 2022-04-14 | Outpatient (CLI) | payer MEDICARE, MEDICAID ==
[2022-04-14 17:51] LABS: BASO % 0.2 % (0.0-1.0); EOS # 0.1 10^3/uL (0.0-0.5); EOS % 1.4 % (0.0-3.0); HEMATOCRIT 42.6 % (36.0-47.0); HEMOGLOBIN 13.5 g/dl (12.0-15.5); LYMPH # 2.9 10^3/uL (1.5-5.0); LYMPH % 28.7 % (24.0-44.0); MEAN CORPUSCULAR HEMOGLOBIN 28.4 pg (27.0-33.0); MEAN CORPUSCULAR HGB CONC 31.7 g/dl (32.0-36.5); MEAN CORPUSCULAR VOLUME 89.7 fl (80.0-96.0); MONO # 0.9 10^3/uL (0.0-0.8); MONO % 9.3 % (2.0-8.0); PLATELET COUNT, AUTOMATED 286 10^3/uL (150-450); RED BLOOD COUNT 4.75 10^6/uL (4.00-5.40); WHITE BLOOD COUNT 10.1 10^3/uL (4.0-10.0)
[2022-04-14 18:02] LABS: INR 1.14
[2022-04-14 18:03] LABS: PARTIAL THROMBOPLASTIN TIME 41.2 SECONDS (25.9-37.0)
== END ==
LOC: M PLALAB 15:20
PROVIDERS: ATTEND Physician Assistant
DX: R04.0 Epistaxis (principal)

== ENCOUNTER → 2022-04-20 | Outpatient (CLI) | payer MEDICARE, MEDICAID | LOC: M LABSMTC 09:15 | PROVIDERS: ATTEND Anesthesiology | DX: Z01.818 Encounter for other preprocedural examination (principal); Z11.52 Encounter for screening for COVID-19 ==

== ENCOUNTER 2022-04-25 07:48 | Day surgery (SDC) | payer MEDICARE, MEDICAID ==
[~2022-04-25] VITALS: Ht 144.8 cm; Wt 42.2 kg
[~2022-04-25 07:48] MED LIST changes: +NS 1,000 ML IV ONE
[2022-04-25] MEDS ORDERED: propofoL 200 MG/20 ML VIAL As Ordered ONE (09:13)
[2022-04-25] MEDS ORDERED: LIDOCAINE 2% 100MG/5ML SDV (FOR ANES.) As Ordered ONE (09:13)
[2022-04-25 09:28] VITALS: BP 120/58
== END 2022-04-25 09:36 | disposition home or self-care (01) ==
LOC: M OPP 07:48
PROVIDERS: ATTEND Internal Medicine Gastroenterology
DX: Z12.11 Encounter for screening for malignant neoplasm of colon (principal); Z86.010 Personal history of colon polyps; K57.30 Diverticulosis of large intestine without perforation or abscess without bleeding; K64.8 Other hemorrhoids; I10 Essential (primary) hypertension; E11.9 Type 2 diabetes mellitus without complications; E78.00 Pure hypercholesterolemia, unspecified; D68.1 Hereditary factor XI deficiency; M41.9 Scoliosis, unspecified; G80.9 Cerebral palsy, unspecified; F72 Severe intellectual disabilities; Z79.02 Long term (current) use of antithrombotics/antiplatelets; Z79.84 Long term (current) use of oral hypoglycemic drugs; Z79.899 Other long term (current) drug therapy; Z88.5 Allergy status to narcotic agent; Z88.8 Allergy status to other drugs, medicaments and biological substances; Z91.018 Allergy to other foods

== ENCOUNTER → 2022-08-03 | Outpatient (CLI) | payer MEDICARE, MEDICAID ==
[~2022-08-03] MED LIST changes: -NS 1,000 ML IV ONE
[2022-08-03 13:10] LABS: BASO % 0.3 % (0.0-1.0); EOS # 0.2 10^3/uL (0.0-0.5); EOS % 2.2 % (0.0-3.0); HEMATOCRIT 42.7 % (36.0-47.0); HEMOGLOBIN 13.1 g/dl (12.0-15.5); LYMPH # 3.3 10^3/uL (1.5-5.0); MEAN CORPUSCULAR HEMOGLOBIN 27.7 pg (27.0-33.0); MEAN CORPUSCULAR HGB CONC 30.7 g/dl (32.0-36.5); MEAN CORPUSCULAR VOLUME 90.3 fl (80.0-96.0); MONO # 0.7 10^3/uL (0.0-0.8); MONO % 9.6 % (2.0-8.0); NEUTROPHILS # 3.4 10^3/uL (1.5-8.5); NEUTROPHILS % 44.6 % (36.0-66.0); PLATELET COUNT, AUTOMATED 273 10^3/uL (150-450); RED BLOOD COUNT 4.73 10^6/uL (4.00-5.40); WHITE BLOOD COUNT 7.6 10^3/uL (4.0-10.0)
[2022-08-03 13:47] LABS: ALBUMIN 3.1 G/DL (3.2-5.2); BILIRUBIN,TOTAL 0.3 MG/DL (0.3-1.2); CALCIUM LEVEL 9.1 MG/DL (8.3-10.6); CREATININE FOR GFR 1.02 MG/DL (0.55-1.30); GLOMERULAR FILTRATION RATE 58.8 (>45); POTASSIUM SERUM 4.6 MMOL/L (3.5-5.1); TOTAL PROTEIN 6.5 G/DL (5.7-8.2)
[2022-08-03 13:48] LABS: C REACTIVE PROTEIN QUANTITATIV 0.4 MG/DL (<1.0); ERYTHROCYTE SEDIMENTATION RATE 18 mm/hr (0-30)
[2022-08-03 13:50] LABS: FERRITIN 25.2 NG/ML (7.3-270.7); THYROID STIMULATING HORMONE 0.586 uIU/ML (0.55-4.78)
== END ==
LOC: M WUC 08:50
PROVIDERS: ATTEND Family Medicine
DX: R63.4 Abnormal weight loss (principal)

== ENCOUNTER → 2022-10-01 | Outpatient (REF) | payer MEDICARE, MEDICAID ==
[2022-10-01 13:43] LABS: APPEARANCE, URINE MANUAL HAZY (CLEAR); COLOR, URINE MANUAL YELLOW (YELLOW)
[2022-10-01 13:45] LABS: BILIRUBIN, URINE MANUAL NEGATIVE (NEGATIVE); BLOOD URINE MANUAL POSITIVE (NEGATIVE); GLUCOSE, URINE (UA) MANUAL 4+(1000 MG/DL) mg/dL (NEGATIVE); KETONE, URINE MANUAL NEGATIVE (NEGATIVE); LEUKOCYTE ESTERASE, URINE MAN NEGATIVE (NEGATIVE); NITRITE, URINE MANUAL POSITIVE (NEGATIVE); PROTEIN, URINE MANUAL TRACE mg/dL (NEGATIVE); UROBILINOGEN, URINE MANUAL NORMAL (NORMAL)
[2022-10-01 13:53] LABS: WBC, URINE 20-30 /hpf (0-3)
[2022-10-01 13:55] LABS: BACTERIA, URINE LARGE AMOUNT; CALCIUM OXALATE CRYSTALS,URINE SMALL AMOUNT /hpf; HYALINE CAST, URINE NONE SEEN /lpf (0-1); SQUAMOUS EPITHELIAL CELL URINE SMALL AMOUNT /hpf (SMALL AMT)
[2022-10-01 13:56] LABS: MUCUS, URINE SMALL AMOUNT (NEGATIVE)
== END ==
LOC: M LAB REF 13:33
PROVIDERS: ATTEND Emergency Medicine
DX: R53.83 Other fatigue (principal)

== ENCOUNTER → 2022-12-21 | Outpatient (CLI) | payer MEDICARE, MEDICAID ==
[~2022-12-21] MED LIST changes: +SENN-186 PO; -SENN-80 PO
[2022-12-21 16:01] LABS: ALBUMIN 3.2 G/DL (3.2-5.2); ALKALINE PHOSPHATASE 91 U/L (46-116); ALT/SGPT 47 U/L (7.0-40); AST/SGOT 37 U/L (<34); BILIRUBIN,TOTAL 0.3 MG/DL (0.3-1.2); BLOOD UREA NITROGEN 12 MG/DL (9-23); CALCIUM LEVEL 8.8 MG/DL (8.3-10.6); CARBON DIOXIDE LEVEL 30 MMOL/L (20-31); CHLORIDE LEVEL 107 MMOL/L (98-107); CHOLESTEROL LEVEL 130 MG/DL (<200); CHOLESTEROL RISK RATIO 1.83 (<5); CREATININE FOR GFR 0.84 MG/DL (0.55-1.30); GLOMERULAR FILTRATION RATE > 60.0 (>45); GLUCOSE, FASTING 87 MG/DL (74-106); HDL CHOLESTEROL 70.7 MG/DL (>40); LDL CHOLESTEROL 38.3 MG/DL (<100); NON-HDL-C 59.3 MG/DL; POTASSIUM SERUM 4.5 MMOL/L (3.5-5.1); PTH INTACT 48.4 PG/ML (18.5-88.0); SODIUM LEVEL 140 MMOL/L (136-145); TOTAL 25(OH) VITAMIN D 94.1 NG/ML (20.0-100.0); TOTAL PROTEIN 6.7 G/DL (5.7-8.2); TRIGLYCERIDES LEVEL 105 MG/DL (<150)
[2022-12-21 16:05] LABS: THYROID PEROXIDASE ANTIBODY < 28.0 U/ML (<60.0)
[2022-12-21 16:52] LABS: HEMOGLOBIN A1c 5.3 % (4.0-6.0)
== END ==
LOC: M WUC 08:54
PROVIDERS: ATTEND Family Medicine
DX: E78.2 Mixed hyperlipidemia (principal); R73.01 Impaired fasting glucose; E55.9 Vitamin D deficiency, unspecified; Z79.899 Other long term (current) drug therapy

== ENCOUNTER → 2022-12-22 | Outpatient (REF) | payer MEDICARE, MEDICAID | LOC: M SFHCPLAZ 16:24 | PROVIDERS: ATTEND Family Medicine | DX: K76.0 Fatty (change of) liver, not elsewhere classified (principal); E61.1 Iron deficiency; R63.4 Abnormal weight loss ==

== ENCOUNTER 2023-06-27 16:38 | Emergency (ER) | payer MEDICARE, MEDICAID ==
[~2023-06-27] VITALS: Ht 152.4 cm; Wt 52.3 kg
[~2023-06-27 16:38] MED LIST changes: +DIAZ-654 PO
[2023-06-27 19:09] VITALS: BP 128/78; TEMP 98.8; O2SAT 98
== END 2023-06-27 19:12 | disposition home or self-care (01) ==
LOC: M ED 16:38
DX: S09.90XA Unspecified injury of head, initial encounter (principal); W19.XXXA Unspecified fall, initial encounter; G40.909 Epilepsy, unspecified, not intractable, without status epilepticus; I10 Essential (primary) hypertension; F79 Unspecified intellectual disabilities; Z86.711 Personal history of pulmonary embolism; Z91.018 Allergy to other foods; Z88.5 Allergy status to narcotic agent; Z88.8 Allergy status to other drugs, medicaments and biological substances; Z79.02 Long term (current) use of antithrombotics/antiplatelets; Z79.811 Long term (current) use of aromatase inhibitors; Z79.899 Other long term (current) drug therapy

== ENCOUNTER → 2023-08-10 | Outpatient (CLI) | payer MEDICARE, MEDICAID ==
[~2023-08-10] MED LIST changes: -CIME200T4 PO; +CIME200T40 PO
[2023-08-10 17:00] LABS: BILIRUBIN,TOTAL 0.2 MG/DL (0.3-1.2); CALCIUM LEVEL 9.1 MG/DL (8.3-10.6); CREATININE FOR GFR 1.02 MG/DL (0.55-1.30); GLOMERULAR FILTRATION RATE 58.7 (>45); POTASSIUM SERUM 4.4 MMOL/L (3.5-5.1); TOTAL PROTEIN 6.2 G/DL (5.7-8.2)
== END ==
LOC: M WUC 14:50
PROVIDERS: ATTEND Family Medicine
DX: R79.89 Other specified abnormal findings of blood chemistry (principal); R46.89 Other symptoms and signs involving appearance and behavior

== ENCOUNTER → 2023-08-14 | Outpatient (REF) | payer MEDICARE, MEDICAID ==
[2023-08-14 17:56] LABS: AMORPHOUS SEDIMENT SMALL (NEGATIVE); APPEARANCE, URINE HAZY (CLEAR); BACTERIA, URINE AUTO 1+ (NEGATIVE); BILIRUBIN, URINE AUTO NEGATIVE (NEGATIVE); BLOOD, URINE BLOOD NEGATIVE (NEGATIVE); COLOR, URINE YELLOW (YELLOW); GLUCOSE, URINE (UA) AUTO NEGATIVE (NEGATIVE); KETONE, URINE AUTO NEGATIVE (NEGATIVE); LEUKOCYTE ESTERASE, URINE AUTO 2+ (NEGATIVE); MUCUS, URINE SMALL (NEGATIVE); NITRITE, URINE AUTO POSITIVE (NEGATIVE); PROTEIN, URINE AUTO NEGATIVE (NEGATIVE); RBC, URINE AUTO 1 /HPF (0-3); SPECIFIC GRAVITY URINE AUTO 1.013 (1.002-1.035); SQUAMOUS EPITHELIAL CELL UR AU 1 /HPF (0-6); UROBILINOGEN, URINE AUTO 0.2 mg/dL (0.0-2.0); WBC, URINE AUTO 34 /HPF (0-3)
== END ==
LOC: M SFHCPLAZ 16:12
PROVIDERS: ATTEND Physician Assistant
DX: R39.9 Unspecified symptoms and signs involving the genitourinary system (principal)

== ENCOUNTER → 2023-08-16 | Outpatient (CLI) | payer MEDICARE, MEDICAID | LOC: M WHC 14:07 | PROVIDERS: ATTEND Family Medicine | DX: Z12.31 Encounter for screening mammogram for malignant neoplasm of breast (principal) ==

== ENCOUNTER → 2023-09-12 | Outpatient (CLI) | payer MEDICARE, MEDICAID ==
[2023-09-12 10:32] LABS: BASO % 0.3 % (0.0-1.0); EOS # 0.3 10^3/uL (0.0-0.5); EOS % 2.8 % (0.0-3.0); HEMATOCRIT 44.5 % (36.0-47.0); LYMPH # 2.8 10^3/uL (1.5-5.0); LYMPH % 31.3 % (24.0-44.0); MEAN CORPUSCULAR HEMOGLOBIN 28.8 pg (27.0-33.0); MEAN CORPUSCULAR HGB CONC 31.5 g/dl (32.0-36.5); MEAN CORPUSCULAR VOLUME 91.6 fl (80.0-96.0); MONO # 0.8 10^3/uL (0.0-0.8); MONO % 9.1 % (2.0-8.0); NEUTROPHILS % 56.3 % (36.0-66.0); PLATELET COUNT, AUTOMATED 228 10^3/uL (150-450); RED BLOOD COUNT 4.86 10^6/uL (4.00-5.40); WHITE BLOOD COUNT 8.9 10^3/uL (4.0-10.0)
[2023-09-12 11:02] LABS: ALBUMIN 3.2 G/DL (3.2-5.2); ALKALINE PHOSPHATASE 97 U/L (46-116); ALT/SGPT 44 U/L (7.0-40); AST/SGOT 39 U/L (<34); BILIRUBIN,TOTAL 0.4 MG/DL (0.3-1.2); BLOOD UREA NITROGEN 11 MG/DL (9-23); CALCIUM LEVEL 8.9 MG/DL (8.3-10.6); CARBON DIOXIDE LEVEL 32 MMOL/L (20-31); CHLORIDE LEVEL 106 MMOL/L (98-107); CHOLESTEROL LEVEL 120 MG/DL (<200); CHOLESTEROL RISK RATIO 1.55 (<5); CREATININE FOR GFR 0.77 MG/DL (0.55-1.30); GLOMERULAR FILTRATION RATE > 60.0 (>45); GLUCOSE, FASTING 94 MG/DL (74-106); HDL CHOLESTEROL 77.4 MG/DL (>40); LDL CHOLESTEROL 28.2 MG/DL (<100); NON-HDL-C 42.6 MG/DL; POTASSIUM SERUM 4.4 MMOL/L (3.5-5.1); SODIUM LEVEL 139 MMOL/L (136-145); TOTAL PROTEIN 6.6 G/DL (5.7-8.2); TRIGLYCERIDES LEVEL 72 MG/DL (<150)
[2023-09-12 11:03] LABS: FERRITIN 17.3 NG/ML (7.3-270.7)
[2023-09-12 11:41] LABS: HEPATITIS C VIRUS ABY INDEX 0.03 INDEX (<0.8)
== END ==
LOC: M RAD 09:12
PROVIDERS: ATTEND Family Medicine
DX: K76.0 Fatty (change of) liver, not elsewhere classified (principal); E61.1 Iron deficiency; E78.2 Mixed hyperlipidemia; N28.1 Cyst of kidney, acquired; Z11.3 Encounter for screening for infections with a predominantly sexual mode of transmission; Z11.59 Encounter for screening for other viral diseases; Z72.89 Other problems related to lifestyle

== ENCOUNTER → 2024-01-02 | Outpatient (CLI) | payer MEDICARE, MEDICAID ==
[~2024-01-02] MED LIST changes: -MIRA1POW3 PO; +MIRA33506 PO
== END ==
LOC: M WHC 12-12 13:39
PROVIDERS: ATTEND Family Medicine
DX: Z13.820 Encounter for screening for osteoporosis (principal); M85.851 Other specified disorders of bone density and structure, right thigh; M85.852 Other specified disorders of bone density and structure, left thigh

== ENCOUNTER → 2024-05-10 | Outpatient (REF) | payer MEDICARE, MEDICAID ==
[2024-05-10 13:16] LABS: APPEARANCE, URINE TURBID (CLEAR); BACTERIA, URINE AUTO NEGATIVE (NEGATIVE); BILIRUBIN, URINE AUTO NEGATIVE (NEGATIVE); BLOOD, URINE BLOOD NEGATIVE (NEGATIVE); COLOR, URINE AMBER (YELLOW); GLUCOSE, URINE (UA) AUTO NEGATIVE (NEGATIVE); KETONE, URINE AUTO TRACE mg/dL (NEGATIVE); LEUKOCYTE ESTERASE, URINE AUTO 1+ (NEGATIVE); MUCUS, URINE MODERATE (NEGATIVE); NITRITE, URINE AUTO POSITIVE (NEGATIVE); PROTEIN, URINE AUTO 1+ mg/dL (NEGATIVE); RBC, URINE AUTO 5 /HPF (0-3); SPECIFIC GRAVITY URINE AUTO 1.018 (1.002-1.035); SQUAMOUS EPITHELIAL CELL UR AU 71 /HPF (0-6); UROBILINOGEN, URINE AUTO 0.2 mg/dL (0.0-2.0); WBC, URINE AUTO 44 /HPF (0-3)
== END ==
LOC: M LAB REF 12:24
PROVIDERS: ATTEND Physician Assistant
DX: R11.10 Vomiting, unspecified (principal); Z60.8 Other problems related to social environment; B96.20 Unspecified Escherichia coli [E. coli] as the cause of diseases classified elsewhere; N39.0 Urinary tract infection, site not specified

== ENCOUNTER → 2024-05-10 | Outpatient (CLI) | payer MEDICARE, MEDICAID ==
[2024-05-10 13:17] LABS: CPK CREATINE PHOSPHOKINASE 84 U/L (34-145)
[2024-05-10 13:18] LABS: ALBUMIN 3.2 G/DL (3.2-5.2); ALKALINE PHOSPHATASE 83 U/L (46-116); ALT/SGPT 25 U/L (7.0-40); AST/SGOT 26 U/L (<34); BILIRUBIN,TOTAL 0.4 MG/DL (0.3-1.2); BLOOD UREA NITROGEN 9 MG/DL (9-23); CALCIUM LEVEL 9.3 MG/DL (8.3-10.6); CARBON DIOXIDE LEVEL 31 MMOL/L (20-31); CHLORIDE LEVEL 106 MMOL/L (98-107); CREATININE FOR GFR 0.92 MG/DL (0.55-1.30); GLOMERULAR FILTRATION RATE > 60.0 (>45); GLUCOSE, FASTING 117 MG/DL (74-106); PTH INTACT 65.2 PG/ML (18.5-88.0); SODIUM LEVEL 139 MMOL/L (136-145)
[2024-05-10 13:19] LABS: FREE T4 1.15 NG/DL (0.89-1.76); THYROID STIMULATING HORMONE 0.458 uIU/ML (0.55-4.78)
[2024-05-10 13:20] LABS: TOTAL 25(OH) VITAMIN D 89.2 NG/ML (20.0-100.0)
[2024-05-10 13:53] LABS: HEMOGLOBIN A1c 5.9 % (4.0-6.0)
== END ==
LOC: M WUC 09:15
PROVIDERS: ATTEND Physician Assistant Medical
DX: E78.2 Mixed hyperlipidemia (principal); F32.9 Major depressive disorder, single episode, unspecified; E55.9 Vitamin D deficiency, unspecified; R73.01 Impaired fasting glucose; R11.10 Vomiting, unspecified; B96.20 Unspecified Escherichia coli [E. coli] as the cause of diseases classified elsewhere; Z60.8 Other problems related to social environment; N39.0 Urinary tract infection, site not specified

== ENCOUNTER 2024-05-13 15:11 | Emergency (ER) | payer MEDICARE, MEDICAID ==
[~2024-05-13] VITALS: Ht 152.4 cm; Wt 53.3 kg
[2024-05-13 15:45] LABS: HEMATOCRIT 38.4 % (36.0-47.0); MEAN CORPUSCULAR HEMOGLOBIN 28.1 pg (27.0-33.0); MEAN CORPUSCULAR HGB CONC 31.3 g/dl (32.0-36.5); MEAN CORPUSCULAR VOLUME 89.9 fl (80.0-96.0); PLATELET COUNT, AUTOMATED 310 10^3/uL (150-450); RED BLOOD COUNT 4.27 10^6/uL (4.00-5.40); WHITE BLOOD COUNT 13.1 10^3/uL (4.0-10.0)
[2024-05-13 16:58] VITALS: BP 137/62; O2SAT 97
[2024-05-13 16:59] VITALS: TEMP 97.1
== END 2024-05-13 17:20 | disposition home or self-care (01) ==
LOC: M ED 15:11 → EDBD 15:11 → M ED 17:20
DX: S70.12XA Contusion of left thigh, initial encounter (principal); T45.515A Adverse effect of anticoagulants, initial encounter; G40.909 Epilepsy, unspecified, not intractable, without status epilepticus; I10 Essential (primary) hypertension; E11.9 Type 2 diabetes mellitus without complications; F72 Severe intellectual disabilities; Z88.8 Allergy status to other drugs, medicaments and biological substances; Z91.018 Allergy to other foods; Z86.718 Personal history of other venous thrombosis and embolism; Z79.899 Other long term (current) drug therapy; Z79.02 Long term (current) use of antithrombotics/antiplatelets; Y92.009 Unspecified place in unspecified non-institutional (private) residence as the place of occurrence of the external cause; Y93.89 Activity, other specified; Y99.9 Unspecified external cause status

== ENCOUNTER → 2024-11-28 | Outpatient (CLI) | payer MEDICARE, MEDICAID ==
[2024-11-28 13:34] LABS: BASO % 0.3 % (0.0-1.0); EOS # 0.2 10^3/uL (0.0-0.5); EOS % 2.7 % (0.0-3.0); HEMATOCRIT 43.5 % (36.0-47.0); HEMOGLOBIN 13.4 g/dl (12.0-15.5); LYMPH # 2.7 10^3/uL (1.5-5.0); LYMPH % 31.2 % (24.0-44.0); MEAN CORPUSCULAR HEMOGLOBIN 28.1 pg (27.0-33.0); MEAN CORPUSCULAR HGB CONC 30.8 g/dl (32.0-36.5); MEAN CORPUSCULAR VOLUME 91.2 fl (80.0-96.0); MONO # 0.7 10^3/uL (0.0-0.8); MONO % 8.3 % (2.0-8.0); NEUTROPHILS % 57.2 % (36.0-66.0); PLATELET COUNT, AUTOMATED 260 10^3/uL (150-450); RED BLOOD COUNT 4.77 10^6/uL (4.00-5.40); WHITE BLOOD COUNT 8.8 10^3/uL (4.0-10.0)
[2024-11-28 13:40] LABS: ALBUMIN 2.9 G/DL (3.2-5.2); ALKALINE PHOSPHATASE 93 U/L (35-104); ALT/SGPT 84 U/L (7.0-40); AST/SGOT 85 U/L (<34); BILIRUBIN,TOTAL 0.3 MG/DL (0.3-1.2); BLOOD UREA NITROGEN 13 MG/DL (9-23); CALCIUM LEVEL 8.5 MG/DL (8.3-10.6); CARBON DIOXIDE LEVEL 30 MMOL/L (20-31); CHLORIDE LEVEL 107 MMOL/L (98-107); CREATININE FOR GFR 0.85 MG/DL (0.55-1.30); GLOMERULAR FILTRATION RATE > 60.0 (>45); GLUCOSE, FASTING 104 MG/DL (74-106); POTASSIUM SERUM 4.4 MMOL/L (3.5-5.1); PTH INTACT 62.7 PG/ML (18.5-88.0); SODIUM LEVEL 141 MMOL/L (136-145); TOTAL PROTEIN 6.4 G/DL (5.7-8.2)
[2024-11-28 13:41] LABS: THYROID STIMULATING HORMONE 0.494 uIU/ML (0.55-4.78); TOTAL 25(OH) VITAMIN D 94.8 NG/ML (20.0-100.0)
[2024-11-28 14:05] LABS: HEMOGLOBIN A1c 5.6 % (4.0-6.0)
== END ==
LOC: M WUC 09:09
PROVIDERS: ATTEND Family Medicine
DX: E78.2 Mixed hyperlipidemia (principal); E61.1 Iron deficiency; R73.01 Impaired fasting glucose; I10 Essential (primary) hypertension; E55.9 Vitamin D deficiency, unspecified; K76.0 Fatty (change of) liver, not elsewhere classified

== ENCOUNTER → 2025-01-15 | Outpatient (CLI) | payer MEDICARE, MEDICAID | LOC: M WUC 09:57 | PROVIDERS: ATTEND Nurse Practitioner Family | DX: R11.2 Nausea with vomiting, unspecified (principal) ==

== ENCOUNTER 2025-04-07 17:50 | Emergency (ER) | payer MEDICARE, MEDICAID ==
[~2025-04-07] VITALS: Ht 152.4 cm; Wt 52.0 kg
[2025-04-07 18:01] VITALS: TEMP 98.1
[2025-04-07 18:21] LABS: BASO # 0.0 10^3/uL (0.0-0.2); BASO % 0.2 % (0.0-1.0); EOS # 0.3 10^3/uL (0.0-0.5); EOS % 2.7 % (0.0-3.0); LYMPH # 3.4 10^3/uL (1.5-5.0); LYMPH % 29.9 % (24.0-44.0); MONO # 0.9 10^3/uL (0.0-0.8); MONO % 8.2 % (2.0-8.0); NEUTROPHILS # 6.8 10^3/uL (1.5-8.5); NEUTROPHILS % 58.5 % (36.0-66.0); PLATELET COUNT, AUTOMATED 302 10^3/uL (150-450)
[2025-04-07 18:39] LABS: INR 1.4
[2025-04-07 19:38] LABS: CALCIUM LEVEL 9.1 MG/DL (8.3-10.6); CARBON DIOXIDE LEVEL 29.0 MMOL/L (20-31); CHLORIDE LEVEL 107.0 MMOL/L (98-107); CREATININE FOR GFR 0.92 MG/DL (0.55-1.30); GLOMERULAR FILTRATION RATE 70.0 (>45); POTASSIUM SERUM 5.5 MMOL/L (3.5-5.1); SODIUM LEVEL 143.0 MMOL/L (136-145)
[2025-04-07] MEDS: HYDROcodone/APAP LIQUID 7.5-325 MG 15 ML UDC PO ONE (22:13)
[2025-04-07] MEDS: LIDOCAINE 5% PATCH TD ONE (22:13)
[2025-04-07 22:15] VITALS: BP 126/78; O2SAT 94
[2025-04-07] MEDS ORDERED: HYDR-3713 PO (22:50)
[2025-04-07] MEDS ORDERED: LIDO1ADH93 TD (22:50)
== END 2025-04-07 23:11 | disposition home or self-care (01) ==
LOC: M ED 17:50
DX: S00.03XA Contusion of scalp, initial encounter (principal); S22.41XA Multiple fractures of ribs, right side, initial encounter for closed fracture; W07.XXXD Fall from chair, subsequent encounter; K44.9 Diaphragmatic hernia without obstruction or gangrene; R91.1 Solitary pulmonary nodule; M50.30 Other cervical disc degeneration, unspecified cervical region; F72 Severe intellectual disabilities; E78.5 Hyperlipidemia, unspecified; K21.9 Gastro-esophageal reflux disease without esophagitis; E11.9 Type 2 diabetes mellitus without complications; I10 Essential (primary) hypertension; Z79.1 Long term (current) use of non-steroidal anti-inflammatories (NSAID); Z79.02 Long term (current) use of antithrombotics/antiplatelets; Z79.899 Other long term (current) drug therapy; Z88.8 Allergy status to other drugs, medicaments and biological substances; Z91.018 Allergy to other foods; Y92.89 Other specified places as the place of occurrence of the external cause; Y93.89 Activity, other specified; Y99.9 Unspecified external cause status; Z79.01 Long term (current) use of anticoagulants

== ENCOUNTER → 2025-04-30 | Outpatient (CLI) | payer MEDICARE, MEDICAID ==
[~2025-04-30] MED LIST changes: +HYDR-3713 PO; +LIDO1ADH93 TD
[2025-04-30 12:45] LABS: ESTIMATED AVERAGE GLUCOSE 137.0 MG/DL (60-110)
[2025-04-30 12:49] LABS: BASO # 0.0 10^3/uL (0.0-0.2); BASO % 0.3 % (0.0-1.0); EOS # 0.3 10^3/uL (0.0-0.5); EOS % 2.4 % (0.0-3.0); LYMPH # 3.0 10^3/uL (1.5-5.0); LYMPH % 26.3 % (24.0-44.0); MONO # 0.9 10^3/uL (0.0-0.8); MONO % 7.4 % (2.0-8.0); NEUTROPHILS # 7.2 10^3/uL (1.5-8.5); NEUTROPHILS % 63.3 % (36.0-66.0); PLATELET COUNT, AUTOMATED 299 10^3/uL (150-450)
[2025-04-30 13:18] LABS: ALT/SGPT 152.0 U/L (7.0-40); AST/SGOT 101.0 U/L (<34); CALCIUM LEVEL 9.3 MG/DL (8.3-10.6); CARBON DIOXIDE LEVEL 33.0 MMOL/L (20-31); CHLORIDE LEVEL 107.0 MMOL/L (98-107); CHOLESTEROL LEVEL 126.0 MG/DL (<200); CHOLESTEROL RISK RATIO 1.85 (<5); CREATININE FOR GFR 0.98 MG/DL (0.55-1.30); GLOMERULAR FILTRATION RATE 64.9 (>45); LDL CHOLESTEROL 30.4 MG/DL (<100); NON-HDL-C 58.2 MG/DL; POTASSIUM SERUM 4.3 MMOL/L (3.5-5.1); SODIUM LEVEL 149.0 MMOL/L (136-145); TRIGLYCERIDES LEVEL 139.0 MG/DL (<150)
[2025-04-30 13:20] LABS: FREE T4 1.07 NG/DL (0.89-1.76)
== END ==
LOC: M WUC 09:01
PROVIDERS: ATTEND Family Medicine
DX: E78.2 Mixed hyperlipidemia (principal); E61.1 Iron deficiency; R73.01 Impaired fasting glucose; E78.5 Hyperlipidemia, unspecified; I10 Essential (primary) hypertension

== ENCOUNTER → 2025-07-08 | Outpatient (CLI) | payer MEDICARE, MEDICAID ==
[~2025-07-08] MED LIST changes: +BARIUM SULFATE 700 MG TABLET As Ordered ONE; +E-Z-PAQUE 96% w/w SUSP 176 GM BTL As Ordered ONE; +VARIBAR NECTAR 40% w/v 240ML SUSP BTL As Ordered ONE; +VARIBAR PUDDING 40% w/v 230ML TUBE As Ordered ONE
== END ==
LOC: M RAD 11:18
PROVIDERS: ATTEND Family Medicine
DX: R13.12 Dysphagia, oropharyngeal phase (principal)

== ENCOUNTER → 2025-08-27 | Outpatient (CLI) | payer MEDICARE, MEDICAID ==
[~2025-08-27] MED LIST changes: -BARIUM SULFATE 700 MG TABLET As Ordered ONE; -E-Z-PAQUE 96% w/w SUSP 176 GM BTL As Ordered ONE; -VARIBAR NECTAR 40% w/v 240ML SUSP BTL As Ordered ONE; -VARIBAR PUDDING 40% w/v 230ML TUBE As Ordered ONE
[2025-08-27 12:30] LABS: BASO # 0.0 10^3/uL (0.0-0.2); BASO % 0.2 % (0.0-1.0); EOS # 0.3 10^3/uL (0.0-0.5); EOS % 3.3 % (0.0-3.0); LYMPH # 2.6 10^3/uL (1.5-5.0); LYMPH % 27.3 % (24.0-44.0); MONO # 0.9 10^3/uL (0.0-0.8); MONO % 9.1 % (2.0-8.0); NEUTROPHILS # 5.6 10^3/uL (1.5-8.5); NEUTROPHILS % 59.8 % (36.0-66.0); PLATELET COUNT, AUTOMATED 250 10^3/uL (150-450)
[2025-08-27 12:38] LABS: FREE T4 1.1 NG/DL (0.89-1.76)
[2025-08-27 12:39] LABS: ALT/SGPT 46.0 U/L (7.0-40); AST/SGOT 46.0 U/L (<34); CALCIUM LEVEL 9.4 MG/DL (8.3-10.6); CARBON DIOXIDE LEVEL 32.0 MMOL/L (20-31); CHLORIDE LEVEL 106.0 MMOL/L (98-107); CREATININE FOR GFR 0.91 MG/DL (0.55-1.30); GLOMERULAR FILTRATION RATE 70.9 (>45); POTASSIUM SERUM 4.6 MMOL/L (3.5-5.1); PTH INTACT 56.1 PG/ML (18.5-88.0); SODIUM LEVEL 144.0 MMOL/L (136-145); VITAMIN B12 LEVEL 599.0 PG/ML (211-911)
[2025-08-27 12:41] LABS: TOTAL 25(OH) VITAMIN D 69.0 NG/ML (20.0-100.0)
[2025-08-27 12:44] LABS: ESTIMATED AVERAGE GLUCOSE 126.0 MG/DL (60-110)
[2025-08-28 10:34] LABS: INSULIN LEVEL 16.4 uIU/mL (<=18.4)
[2025-08-31 03:43] LABS: ENHANCED LIVER FIBROSIS SCORE 10.58 (<9.80)
== END ==
LOC: M WUC 08:53
PROVIDERS: ATTEND Family Medicine
DX: E55.9 Vitamin D deficiency, unspecified (principal); E61.1 Iron deficiency; E78.2 Mixed hyperlipidemia; R73.01 Impaired fasting glucose; I10 Essential (primary) hypertension; K76.0 Fatty (change of) liver, not elsewhere classified